=== PATIENT | female | born 1985 | race African-American/Black ===

== ENCOUNTER 2018-05-05 12:08 | Inpatient (IN) ==
[2018-05-05] MEDS ORDERED: cefTRIAXone 1,000 MG in SODIUM CHLORIDE 0.9% 100 ML IV STA (12:50)
[2018-05-05] MEDS ORDERED: SODIUM CHLORIDE 0.9% 1,000 ML IV STA (12:50)
[2018-05-05] MEDS ORDERED: ONDANSETRON 4 MG/2 ML VIAL IV STA (12:51)
[2018-05-05 13:06] LABS: Basophils % 0.3 % (0.0-0.8); Eosinophils % 0.3 % (0.00-10.9); Hematocrit 38.2 VOL% (35.7-47.0); Hemoglobin 12.7 GM/DL (12.0-16.0); Immature Granulocytes % 1.6 %; Lymphocytes # 0.2 10*3/uL (1.4-4.0); Lymphocytes % 3.5 % (21.3-54.2); Mean Corpuscular HGB Conc 33.2 GM/DL (32-36); Mean Corpuscular Hemoglobin 29 PG (27-34); Mean Corpuscular Volume 86.6 FL (87-102); Mean Platelet Volume 10.5 FL (9.6-12.0); Monocytes % 0.6 % (1.7-12.7); Neutrophils # 5.8 10*3/uL (1.4-7.4); Neutrophils % 93.7 % (38.7-73.9); Platelet Count 258 T/CUMM (130-400); Red Blood Count 4.41 MC/CUMM (3.8-5.5); White Blood Count 6.2 T/CUMM (4-12)
[2018-05-05 13:07] LABS: INR 1.1; PT Patient Result 11.4 SECS
[2018-05-05 13:16] LABS: Alanine Aminotransferase 22 U/L (13-56); Alkaline Phosphatase 79 U/L (45-117); Aspartate Amino Transferase 21 U/L (0-37); Blood Urea Nitrogen 16 MG/DL (7-18); Calcium 9.1 MG/DL (8.5-10.1); Glucose 284 MG/DL (74-106); Osmolality,Calculated 274.5 MOS/KG (273-304); Potassium 3.8 MMOL/L (3.5-5.1); Sodium 132 MMOL/L (136-145); Total Protein 8.4 G/DL (6.4-8.3)
[2018-05-05 13:17] LABS: Lactic Acid 3.7 MMOL/L (0.4-2.0)
[2018-05-05 13:47] LABS: Band Neutrophils 1 % (0-10); Lymphocytes 6 % (20-55); Platelet Estimate Normal; Segmented Neutrophils 92 % (50-85); Total Cells Counted 100
[2018-05-05 14:08] LABS: Apearance,Urine CLOUDY (Clear); Bacteria,Urine Many /HPF (Few); Bilirubin,Urine Negative (Negative); Blood, Urine Large mg/dL (Negative); Glucose,Urine (UA) 50 mg/dL (Negative); Hyaline Casts,Urine 7 /LPF (0-3); Ketones,Urine Negative (Negative); Mucus,Urine Few /LPF (Occasional); Nitrite,Urine Negative (Negative); Protein,Urine 30 MG/DL; RBC,Urine 217 /HPF (0-4); Squamous Epithelial Cell,Urine Occasional /HPF (0-10); Urine Color Amber (Yellow); Urine Specific Gravity 1.021 (1.001-1.035); Urine Urobilinogen < 2.0 EU/DL (0.2-1.0); WBC,Urine 38 /HPF (0-6)
[2018-05-05] MEDS ORDERED: DEXTROSE 50% 25 GM/50 ML VIAL IV PRN (17:28)
[2018-05-05] MEDS ORDERED: GLUCAGON 1 MG VIAL IM PRN (17:28)
[2018-05-05] MEDS ORDERED: NON-FORMULARY MEDICATION (Ondansetron Hcl [Ondansetron Hcl] 8 MG) PO PRN (17:33)
[2018-05-05] MEDS ORDERED: FLUTICASONE 50 MCG NASAL SPRAY 16 GM BOTTLE BOTH NARES PRN (17:33)
[2018-05-05] MEDS: SODIUM CHLORIDE 0.9% 1,000 ML IV SCH (17:35)
[2018-05-05] MEDS ORDERED: SODIUM CHLORIDE 0.9% 3,300 ML IV ONE (17:43)
[2018-05-05] MEDS ORDERED: SODIUM CHLORIDE 0.9% 1,000 ML IV ONE (17:45)
[2018-05-05] MEDS: ACETAMINOPHEN 325 MG TABLET PO PRN ×2 (17:50→22:01)
[2018-05-05] MEDS ORDERED: LEVOFLOXACIN INJ 500 MG in PREMIX 1 EACH IV SCH (18:00)
[2018-05-05] MEDS: MEROPENEM 1,000 MG in SYRINGE 1 EACH IV SCH (19:29)
[2018-05-05 20:16] LABS: Lactic Acid 2.3 MMOL/L (0.4-2.0)
[2018-05-05] MEDS ORDERED: FLUCONAZOLE 150 MG TABLET PO ONE (21:00)
[2018-05-05] MEDS: DOCUSATE SODIUM 100 MG CAPSULE PO SCH (21:53)
[2018-05-05] MEDS: metFORMIN 500 MG TABLET PO SCH (21:53)
[2018-05-05] MEDS: INSULIN REGULAR 100 UNIT/ML SUBCUT SCH (21:54)
[2018-05-05] MEDS: BRIMONIDINE/TIMOLOL OPH SOLN 5 ML BOTTLE LEFT EYE SCH (21:55)
[2018-05-05] MEDS: TRAVOPROST 0.004% OPH SOLN 2.5 ML BOTTLE LEFT EYE SCH (21:55)
[2018-05-05] MEDS: ONDANSETRON 4 MG/2 ML VIAL IV PRN (22:02)
[2018-05-06] MEDS: MEROPENEM 1,000 MG in SYRINGE 1 EACH IV SCH ×3 (03:56→18:03)
[2018-05-06] MEDS: ONDANSETRON 4 MG/2 ML VIAL IV PRN ×4 (03:58→22:34)
[2018-05-06] MEDS: SODIUM CHLORIDE 0.9% 1,000 ML IV SCH ×3 (03:59→22:06)
[2018-05-06] MEDS: ACETAMINOPHEN 325 MG TABLET PO PRN ×3 (04:03→16:51)
[2018-05-06 04:49] LABS: Basophils % 0.2 % (0.0-0.8); Eosinophils % 0.7 % (0.00-10.9); Hematocrit 33.1 VOL% (35.7-47.0); Hemoglobin 11.3 GM/DL (12.0-16.0); Immature Granulocytes % 0.4 %; Immature Granulocytes Absolute 0.02 #; Lymphocytes # 0.2 10*3/uL (1.4-4.0); Lymphocytes % 4.5 % (21.3-54.2); Mean Corpuscular HGB Conc 34.1 GM/DL (32-36); Mean Corpuscular Hemoglobin 29 PG (27-34); Mean Corpuscular Volume 86.2 FL (87-102); Mean Platelet Volume 10.9 FL (9.6-12.0); Monocytes % 0.9 % (1.7-12.7); Neutrophils # 4.2 10*3/uL (1.4-7.4); Neutrophils % 93.3 % (38.7-73.9); Platelet Count 186 T/CUMM (130-400); Red Blood Count 3.84 MC/CUMM (3.8-5.5); Red Cell Distribution Width 13.4 % (9.3-17.3); White Blood Count 4.5 T/CUMM (4-12)
[2018-05-06 05:05] LABS: Calcium 7.8 MG/DL (8.5-10.1); Osmolality,Calculated 278.2 MOS/KG (273-304); Potassium 3.7 MMOL/L (3.5-5.1)
[2018-05-06 05:21] LABS: Band Neutrophils 1 % (0-10); Hypochromasia 1+; Lymphocytes 3 % (20-55); Platelet Estimate Normal; Segmented Neutrophils 95 % (50-85); Total Cells Counted 100
[2018-05-06] MEDS: LISINOPRIL 10 MG TABLET PO SCH (08:35)
[2018-05-06] MEDS: INSULIN REGULAR 100 UNIT/ML SUBCUT SCH ×4 (08:36→22:04)
[2018-05-06] MEDS: BRIMONIDINE/TIMOLOL OPH SOLN 5 ML BOTTLE LEFT EYE SCH ×2 (08:36→22:03)
[2018-05-06] MEDS: metFORMIN 500 MG TABLET PO SCH ×2 (08:36→22:03)
[2018-05-06] MEDS: DOCUSATE SODIUM 100 MG CAPSULE PO SCH ×2 (08:36→22:03)
[2018-05-06] MEDS: PANTOPRAZOLE 40 MG TABLET PO SCH (08:36)
[2018-05-06] MEDS: glipiZIDE 5 MG TABLET PO SCH (08:36)
[2018-05-06] MEDS ORDERED: PANTOPRAZOLE 40 MG TABLET PO SCH (09:00)
[2018-05-06] MEDS: TRAVOPROST 0.004% OPH SOLN 2.5 ML BOTTLE LEFT EYE SCH (22:03)
[2018-05-07] MEDS: MEROPENEM 1,000 MG in SYRINGE 1 EACH IV SCH ×3 (03:10→17:46)
[2018-05-07] MEDS: SODIUM CHLORIDE 0.9% 1,000 ML IV SCH ×2 (03:16→14:52)
[2018-05-07 05:20] LABS: Basophils % 0.4 % (0.0-0.8); Eosinophils % 0.8 % (0.00-10.9); Hematocrit 31.6 VOL% (35.7-47.0); Hemoglobin 10.9 GM/DL (12.0-16.0); Immature Granulocytes % 0.4 %; Immature Granulocytes Absolute 0.01 #; Lymphocytes # 0.2 10*3/uL (1.4-4.0); Lymphocytes % 8.2 % (21.3-54.2); Mean Corpuscular HGB Conc 34.5 GM/DL (32-36); Mean Corpuscular Hemoglobin 29 PG (27-34); Mean Platelet Volume 11.5 FL (9.6-12.0); Monocytes % 0.8 % (1.7-12.7); Neutrophils # 2.3 10*3/uL (1.4-7.4); Neutrophils % 89.4 % (38.7-73.9); Platelet Count 145 T/CUMM (130-400); Red Blood Count 3.76 MC/CUMM (3.8-5.5); Red Cell Distribution Width 13.2 % (9.3-17.3); White Blood Count 2.6 T/CUMM (4-12)
[2018-05-07 05:45] LABS: Hypochromasia 1+; Platelet Estimate Normal
[2018-05-07 05:54] LABS: Calcium 7.5 MG/DL (8.5-10.1); Osmolality,Calculated 272.1 MOS/KG (273-304); Potassium 3.4 MMOL/L (3.5-5.1)
[2018-05-07] MEDS ORDERED: POTASSIUM CHLORIDE 20 MEQ TABLET PO PRN (07:40)
[2018-05-07] MEDS: ONDANSETRON 4 MG/2 ML VIAL IV PRN (07:53)
[2018-05-07] MEDS: INSULIN REGULAR 100 UNIT/ML SUBCUT SCH ×4 (10:07→21:00)
[2018-05-07] MEDS: PANTOPRAZOLE 40 MG TABLET PO SCH (10:09)
[2018-05-07] MEDS: glipiZIDE 5 MG TABLET PO SCH (10:09)
[2018-05-07] MEDS: DOCUSATE SODIUM 100 MG CAPSULE PO SCH ×2 (10:09→20:54)
[2018-05-07] MEDS: metFORMIN 500 MG TABLET PO SCH ×2 (10:09→20:54)
[2018-05-07] MEDS: LISINOPRIL 10 MG TABLET PO SCH (10:09)
[2018-05-07] MEDS: BRIMONIDINE/TIMOLOL OPH SOLN 5 ML BOTTLE LEFT EYE SCH ×2 (10:10→20:54)
[2018-05-07] MEDS: FILGRASTIM-SNDZ 480 MCG/0.8 ML SYRINGE SUBCUT SCH (10:15)
[2018-05-07] MEDS: CLINDAMYCIN INJ 600 MG in PREMIX 1 EACH IV SCH ×2 (11:57→18:42)
[2018-05-07] MEDS: PROMETHAZINE INJ 25 MG in SODIUM CHLORIDE 0.9% 50 ML IV PRN (15:22)
[2018-05-07] MEDS: TRAVOPROST 0.004% OPH SOLN 2.5 ML BOTTLE LEFT EYE SCH (20:54)
[2018-05-07] MEDS: ALUMINUM/MAGNES/SIMETH MAX STR 30 ML UDCUP PO PRN (21:48)
[2018-05-07] MEDS ORDERED: ALUMINUM/MAGNES/SIMETH MAX STR 30 ML UDCUP PO SCH (22:00)
[2018-05-08] MEDS: MEROPENEM 1,000 MG in SYRINGE 1 EACH IV SCH ×3 (02:36→17:43)
[2018-05-08] MEDS: CLINDAMYCIN INJ 600 MG in PREMIX 1 EACH IV SCH ×2 (02:42→11:11)
[2018-05-08 03:04] LABS: Basophils # 0.1 10*3/uL (0.0-0.2); Basophils % 1.6 % (0.0-0.8); Eosinophils % 0.3 % (0.00-10.9); Hematocrit 30.5 VOL% (35.7-47.0); Hemoglobin 10.2 GM/DL (12.0-16.0); Immature Granulocytes % 1.3 %; Immature Granulocytes Absolute 0.04 #; Lymphocytes # 0.2 10*3/uL (1.4-4.0); Lymphocytes % 7.8 % (21.3-54.2); Mean Corpuscular HGB Conc 33.4 GM/DL (32-36); Mean Corpuscular Hemoglobin 29 PG (27-34); Mean Corpuscular Volume 85.7 FL (87-102); Mean Platelet Volume 10.9 FL (9.6-12.0); Monocytes % 1.3 % (1.7-12.7); Neutrophils # 2.7 10*3/uL (1.4-7.4); Neutrophils % 87.7 % (38.7-73.9); Platelet Count 136 T/CUMM (130-400); Red Blood Count 3.56 MC/CUMM (3.8-5.5); Red Cell Distribution Width 13.2 % (9.3-17.3); White Blood Count 3.1 T/CUMM (4-12)
[2018-05-08 04:48] LABS: Band Neutrophils 26 % (0-10); Lymphocytes 7 % (20-55); Metamyelocytes 17 %; Myelocytes 9 %; Platelet Estimate Decreased; Segmented Neutrophils 37 % (50-85); Total Cells Counted 100
[2018-05-08 04:49] LABS: Anisocytosis Slight; Burr Cells Few; Microcytosis Slight
[2018-05-08 08:05] LABS: Calcium 7.1 MG/DL (8.5-10.1); Osmolality,Calculated 275.1 MOS/KG (273-304); Potassium 3.7 MMOL/L (3.5-5.1)
[2018-05-08] MEDS: SODIUM CHLORIDE 0.9% 1,000 ML IV SCH (09:46)
[2018-05-08] MEDS: PROMETHAZINE INJ 25 MG in SODIUM CHLORIDE 0.9% 50 ML IV PRN (09:51)
[2018-05-08] MEDS: LISINOPRIL 10 MG TABLET PO SCH (09:56)
[2018-05-08] MEDS: DOCUSATE SODIUM 100 MG CAPSULE PO SCH ×2 (09:56→20:15)
[2018-05-08] MEDS: metFORMIN 500 MG TABLET PO SCH (09:56)
[2018-05-08] MEDS: PANTOPRAZOLE 40 MG TABLET PO SCH (09:56)
[2018-05-08] MEDS: glipiZIDE 5 MG TABLET PO SCH (09:57)
[2018-05-08] MEDS: FILGRASTIM-SNDZ 480 MCG/0.8 ML SYRINGE SUBCUT SCH (09:58)
[2018-05-08] MEDS: INSULIN REGULAR 100 UNIT/ML SUBCUT SCH ×4 (09:59→20:43)
[2018-05-08] MEDS: BRIMONIDINE/TIMOLOL OPH SOLN 5 ML BOTTLE LEFT EYE SCH ×2 (10:04→20:15)
[2018-05-08] MEDS ORDERED: chlorproMAZINE INJ 25 MG in SODIUM CHLORIDE 0.9% 100 ML IV PRN (11:56)
[2018-05-08] MEDS: DEXT 5% NACL 0.45% KCL 20 MEQ 20 MEQ/1,000 ML BAG IV SCH ×2 (13:41→21:15)
[2018-05-08] MEDS: TRAVOPROST 0.004% OPH SOLN 2.5 ML BOTTLE LEFT EYE SCH (20:15)
[2018-05-08] MEDS: DESITIN 4OZ/NYSTATIN 15 GRAM MIXTURE PASTE TOP SCH (20:15)
[2018-05-09] MEDS: MEROPENEM 1,000 MG in SYRINGE 1 EACH IV SCH ×3 (02:20→17:34)
[2018-05-09 02:42] LABS: Basophils % 1.1 % (0.0-0.8); Eosinophils % 0.4 % (0.00-10.9); Hematocrit 30.8 VOL% (35.7-47.0); Hemoglobin 10.5 GM/DL (12.0-16.0); Immature Granulocytes % 11.2 %; Immature Granulocytes Absolute 0.32 #; Lymphocytes # 0.4 10*3/uL (1.4-4.0); Lymphocytes % 12.6 % (21.3-54.2); Mean Corpuscular HGB Conc 34.1 GM/DL (32-36); Mean Corpuscular Hemoglobin 29 PG (27-34); Mean Corpuscular Volume 84.4 FL (87-102); Mean Platelet Volume 10.8 FL (9.6-12.0); Monocytes # 0.1 10*3/uL (0.11-0.8); Monocytes % 2.8 % (1.7-12.7); Neutrophils # 2.1 10*3/uL (1.4-7.4); Neutrophils % 71.9 % (38.7-73.9); Platelet Count 133 T/CUMM (130-400); Red Blood Count 3.65 MC/CUMM (3.8-5.5); Red Cell Distribution Width 13.5 % (9.3-17.3); White Blood Count 2.9 T/CUMM (4-12)
[2018-05-09 02:54] LABS: Albumin 2.5 G/DL (3.4-5.0); Calcium 7.4 MG/DL (8.5-10.1); Osmolality,Calculated 269.5 MOS/KG (273-304); Potassium 3.7 MMOL/L (3.5-5.1); Total Protein 6.9 G/DL (6.4-8.3)
[2018-05-09 03:13] LABS: Band Neutrophils 30 % (0-10); Eosinophils 2 % (0-10); Lymphocytes 10 % (20-55); Segmented Neutrophils 58 % (50-85); Total Cells Counted 100
[2018-05-09] MEDS: ACETAMINOPHEN 325 MG TABLET PO PRN ×4 (03:46→21:43)
[2018-05-09] MEDS: DEXT 5% NACL 0.45% KCL 20 MEQ 20 MEQ/1,000 ML BAG IV SCH ×3 (04:50→20:23)
[2018-05-09] MEDS: glipiZIDE 5 MG TABLET PO SCH (09:44)
[2018-05-09] MEDS: DOCUSATE SODIUM 100 MG CAPSULE PO SCH ×2 (09:44→20:15)
[2018-05-09] MEDS: PANTOPRAZOLE 40 MG TABLET PO SCH (09:44)
[2018-05-09] MEDS: LISINOPRIL 10 MG TABLET PO SCH (09:44)
[2018-05-09] MEDS: BRIMONIDINE/TIMOLOL OPH SOLN 5 ML BOTTLE LEFT EYE SCH ×2 (09:46→20:15)
[2018-05-09] MEDS: INSULIN REGULAR 100 UNIT/ML SUBCUT SCH ×4 (09:46→20:15)
[2018-05-09] MEDS: DESITIN 4OZ/NYSTATIN 15 GRAM MIXTURE PASTE TOP SCH ×2 (09:50→20:23)
[2018-05-09] MEDS: FILGRASTIM-SNDZ 480 MCG/0.8 ML SYRINGE SUBCUT SCH (09:53)
[2018-05-09] MEDS: ALUMINUM/MAGNES/SIMETH MAX STR 30 ML UDCUP PO PRN (09:59)
[2018-05-09] MEDS: TRAVOPROST 0.004% OPH SOLN 2.5 ML BOTTLE LEFT EYE SCH (20:15)
[2018-05-10] MEDS: ONDANSETRON 4 MG/2 ML VIAL IV PRN ×3 (01:41→14:45)
[2018-05-10] MEDS: MEROPENEM 1,000 MG in SYRINGE 1 EACH IV SCH ×2 (01:42→10:34)
[2018-05-10] MEDS: DEXT 5% NACL 0.45% KCL 20 MEQ 20 MEQ/1,000 ML BAG IV SCH ×3 (04:01→17:44)
[2018-05-10] MEDS: ACETAMINOPHEN 325 MG TABLET PO PRN ×3 (04:34→21:07)
[2018-05-10 05:42] LABS: Hemoglobin 10.5 GM/DL (12.0-16.0); Immature Granulocytes % 7.5 %; Immature Granulocytes Absolute 0.29 #; Lymphocytes # 0.7 10*3/uL (1.4-4.0); Lymphocytes % 17.6 % (21.3-54.2); Mean Corpuscular Hemoglobin 29 PG (27-34); Mean Corpuscular Volume 81.3 FL (87-102); Mean Platelet Volume 11.9 FL (9.6-12.0); Monocytes # 0.3 10*3/uL (0.11-0.8); Neutrophils # 2.6 10*3/uL (1.4-7.4); Neutrophils % 65.9 % (38.7-73.9); Platelet Count 119 T/CUMM (130-400); Red Blood Count 3.69 MC/CUMM (3.8-5.5); Red Cell Distribution Width 13.7 % (9.3-17.3); White Blood Count 3.9 T/CUMM (4-12)
[2018-05-10 06:35] LABS: Albumin 2.4 G/DL (3.4-5.0); Bilirubin,Total 7.1 MG/DL (0.2-1.0); Calcium 7.9 MG/DL (8.5-10.1); Osmolality,Calculated 266.7 MOS/KG (273-304); Potassium 3.9 MMOL/L (3.5-5.1); Total Protein 6.8 G/DL (6.4-8.3)
[2018-05-10 07:53] LABS: Band Neutrophils 2 % (0-10); Eosinophils 2 % (0-10); Hypochromasia 1+; Lymphocytes 14 % (20-55); Microcytosis Slight; Platelet Estimate Decreased; Segmented Neutrophils 73 % (50-85); Total Cells Counted 100
[2018-05-10] MEDS: LISINOPRIL 10 MG TABLET PO SCH (08:50)
[2018-05-10] MEDS: BRIMONIDINE/TIMOLOL OPH SOLN 5 ML BOTTLE LEFT EYE SCH ×2 (08:50→20:04)
[2018-05-10] MEDS: glipiZIDE 5 MG TABLET PO SCH (08:50)
[2018-05-10] MEDS: DOCUSATE SODIUM 100 MG CAPSULE PO SCH ×2 (08:50→20:03)
[2018-05-10] MEDS: INSULIN REGULAR 100 UNIT/ML SUBCUT SCH ×4 (08:50→20:05)
[2018-05-10] MEDS: PANTOPRAZOLE 40 MG TABLET PO SCH (08:51)
[2018-05-10] MEDS: FILGRASTIM-SNDZ 480 MCG/0.8 ML SYRINGE SUBCUT SCH (08:51)
[2018-05-10] MEDS: DESITIN 4OZ/NYSTATIN 15 GRAM MIXTURE PASTE TOP SCH ×2 (08:53→20:05)
[2018-05-10] MEDS: DOXYCYCLINE HYCLATE 100 MG CAPSULE PO SCH (20:03)
[2018-05-10] MEDS: TRAVOPROST 0.004% OPH SOLN 2.5 ML BOTTLE LEFT EYE SCH (20:04)
[2018-05-11] MEDS: ONDANSETRON 4 MG/2 ML VIAL IV PRN (02:52)
[2018-05-11] MEDS: PROMETHAZINE INJ 25 MG in SODIUM CHLORIDE 0.9% 50 ML IV PRN (04:55)
[2018-05-11 05:12] LABS: Basophils % 0.5 % (0.0-0.8); Eosinophils % 0.5 % (0.00-10.9); Hematocrit 28.7 VOL% (35.7-47.0); Hemoglobin 10.1 GM/DL (12.0-16.0); Immature Granulocytes % 6.4 %; Immature Granulocytes Absolute 0.53 #; Lymphocytes # 1.6 10*3/uL (1.4-4.0); Lymphocytes % 19.2 % (21.3-54.2); Mean Corpuscular HGB Conc 35.2 GM/DL (32-36); Mean Corpuscular Hemoglobin 29 PG (27-34); Mean Corpuscular Volume 82.5 FL (87-102); Mean Platelet Volume 11.7 FL (9.6-12.0); Monocytes # 0.5 10*3/uL (0.11-0.8); Monocytes % 6.5 % (1.7-12.7); Neutrophils # 5.6 10*3/uL (1.4-7.4); Neutrophils % 66.9 % (38.7-73.9); Platelet Count 101 T/CUMM (130-400); Red Blood Count 3.48 MC/CUMM (3.8-5.5); Red Cell Distribution Width 14.2 % (9.3-17.3); White Blood Count 8.3 T/CUMM (4-12)
[2018-05-11 05:34] LABS: Band Neutrophils 2 % (0-10); Eosinophils 1 % (0-10); Hypochromasia 1+; Lymphocytes 19 % (20-55); Platelet Estimate Decreased; Segmented Neutrophils 68 % (50-85); Total Cells Counted 100
[2018-05-11 05:35] LABS: Microcytosis Slight
[2018-05-11 05:49] LABS: Albumin 2.2 G/DL (3.4-5.0); Bilirubin,Total 8.7 MG/DL (0.2-1.0); Calcium 8.1 MG/DL (8.5-10.1); Osmolality,Calculated 264.8 MOS/KG (273-304); Potassium 3.9 MMOL/L (3.5-5.1); Total Protein 6.6 G/DL (6.4-8.3)
[2018-05-11] MEDS: BRIMONIDINE/TIMOLOL OPH SOLN 5 ML BOTTLE LEFT EYE SCH ×2 (08:47→20:40)
[2018-05-11] MEDS: LISINOPRIL 10 MG TABLET PO SCH (08:48)
[2018-05-11] MEDS: DOCUSATE SODIUM 100 MG CAPSULE PO SCH ×2 (08:48→20:39)
[2018-05-11] MEDS: PANTOPRAZOLE 40 MG TABLET PO SCH (08:48)
[2018-05-11] MEDS: DOXYCYCLINE HYCLATE 100 MG CAPSULE PO SCH ×2 (08:48→20:34)
[2018-05-11] MEDS: INSULIN REGULAR 100 UNIT/ML SUBCUT SCH ×4 (08:48→20:50)
[2018-05-11] MEDS: DESITIN 4OZ/NYSTATIN 15 GRAM MIXTURE PASTE TOP SCH ×2 (08:51→20:55)
[2018-05-11] MEDS: ALUMINUM/MAGNES/SIMETH MAX STR 30 ML UDCUP PO PRN (09:43)
[2018-05-11 10:27] LABS: Hepatitis A Ab IgM Quant 0.14 Index; Hepatitis A Ab IgM Result Negative (Negative); Hepatitis B Core IgM Quant 0.16 Index; Hepatitis B Core IgM Result Negative (Negative); Hepatitis B Surface Ag Quant 0.39 Index; Hepatitis B Surface Ag Result Negative (Negative); Hepatitis C Virus Ab Quant 0.13 Index; Hepatitis C Virus Ab Result Negative (Negative)
[2018-05-11] MEDS ORDERED: TRIAMCINOLONE ACETONIDE 40 MG/1 ML VIAL MISC INJ ONE (12:21)
[2018-05-11 15:01] LABS: INR 1.1
[2018-05-11 15:16] LABS: % Iron Saturation 17.7 % (18-50); Ferritin 2960.4 ng/ml (8-252)
[2018-05-11] MEDS: IBUPROFEN 400 MG TABLET PO PRN (16:05)
[2018-05-11] MEDS: ACETAMINOPHEN 325 MG TABLET PO PRN (17:45)
[2018-05-11] MEDS: DEXT 5% NACL 0.45% KCL 20 MEQ 20 MEQ/1,000 ML BAG IV SCH (18:52)
[2018-05-11] MEDS: TRAVOPROST 0.004% OPH SOLN 2.5 ML BOTTLE LEFT EYE SCH (20:40)
[2018-05-12 04:54] LABS: Basophils # 0.1 10*3/uL (0.0-0.2); Basophils % 0.5 % (0.0-0.8); Eosinophils % 0.2 % (0.00-10.9); Hematocrit 28.7 VOL% (35.7-47.0); Immature Granulocytes % 14.1 %; Immature Granulocytes Absolute 1.49 #; Mean Corpuscular HGB Conc 34.8 GM/DL (32-36); Mean Corpuscular Hemoglobin 28 PG (27-34); Mean Corpuscular Volume 81.5 FL (87-102); Mean Platelet Volume 12.2 FL (9.6-12.0); Monocytes # 0.6 10*3/uL (0.11-0.8); Monocytes % 5.3 % (1.7-12.7); NRBC # 0.03 10*3/uL; Neutrophils # 6.5 10*3/uL (1.4-7.4); Neutrophils % 60.9 % (38.7-73.9); Platelet Count 115 T/CUMM (130-400); Red Blood Count 3.52 MC/CUMM (3.8-5.5); Red Cell Distribution Width 14.3 % (9.3-17.3); White Blood Count 10.6 T/CUMM (4-12)
[2018-05-12 04:58] LABS: INR 1.1; PT Patient Result 11.8 SECS
[2018-05-12 05:24] LABS: Albumin 2.3 G/DL (3.4-5.0); Bilirubin,Total 10.8 MG/DL (0.2-1.0); Calcium 7.8 MG/DL (8.5-10.1); Osmolality,Calculated 268.8 MOS/KG (273-304); Potassium 3.9 MMOL/L (3.5-5.1); Total Protein 6.7 G/DL (6.4-8.3)
[2018-05-12 05:26] LABS: Band Neutrophils 9 % (0-10); Lymphocytes 13 % (20-55); Metamyelocytes 1 %; Nucleated Red Blood Cells 1 (0-5); Platelet Estimate Adequate; Segmented Neutrophils 71 % (50-85); Total Cells Counted 100
[2018-05-12 05:27] LABS: Atypical Lymphocytes Few; Polychromasia Slight; Target Cells Few
[2018-05-12] MEDS: ALPRAZolam 0.25 MG TABLET PO PRN (08:37)
[2018-05-12] MEDS ORDERED: GLUCAGON 1 MG VIAL IM PRN (09:07)
[2018-05-12] MEDS ORDERED: DEXTROSE 50% 25 GM/50 ML VIAL IV PRN (09:07)
[2018-05-12] MEDS: INSULIN REGULAR 100 UNIT/ML SUBCUT SCH ×4 (11:04→20:32)
[2018-05-12] MEDS: LISINOPRIL 10 MG TABLET PO SCH (11:19)
[2018-05-12] MEDS: DOCUSATE SODIUM 100 MG CAPSULE PO SCH ×2 (11:19→20:33)
[2018-05-12] MEDS: PANTOPRAZOLE 40 MG TABLET PO SCH (11:19)
[2018-05-12] MEDS: BRIMONIDINE/TIMOLOL OPH SOLN 5 ML BOTTLE LEFT EYE SCH ×2 (11:20→20:32)
[2018-05-12] MEDS: DESITIN 4OZ/NYSTATIN 15 GRAM MIXTURE PASTE TOP SCH ×2 (11:22→20:34)
[2018-05-12] MEDS: MUPIROCIN 2% OINT 22 GM TUBE TOP SCH ×3 (12:23→20:33)
[2018-05-12] MEDS: DEXT 5% NACL 0.45% KCL 20 MEQ 20 MEQ/1,000 ML BAG IV SCH (13:40)
[2018-05-12 13:55] LABS: Mitochondrial Antibody (M2) <0.1 U
[2018-05-12 15:01] LABS: Smooth Muscle Antibody Negative (Negative)
[2018-05-12] MEDS: IBUPROFEN 400 MG TABLET PO PRN (15:56)
[2018-05-12] MEDS: TRAVOPROST 0.004% OPH SOLN 2.5 ML BOTTLE LEFT EYE SCH (20:32)
[2018-05-12] MEDS: TEMAZEPAM 15 MG CAPSULE PO PRN (20:38)
[2018-05-13 05:53] LABS: Basophils % 0.2 % (0.0-0.8); Eosinophils % 0.2 % (0.00-10.9); Hematocrit 27.3 VOL% (35.7-47.0); Hemoglobin 9.6 GM/DL (12.0-16.0); Immature Granulocytes Absolute 1.16 #; Lymphocytes # 2.2 10*3/uL (1.4-4.0); Lymphocytes % 21.1 % (21.3-54.2); Mean Corpuscular HGB Conc 35.2 GM/DL (32-36); Mean Corpuscular Hemoglobin 29 PG (27-34); Mean Platelet Volume 12.2 FL (9.6-12.0); Monocytes # 0.6 10*3/uL (0.11-0.8); Monocytes % 5.5 % (1.7-12.7); NRBC # 0.03 10*3/uL; Neutrophils # 6.5 10*3/uL (1.4-7.4); Platelet Count 102 T/CUMM (130-400); Red Blood Count 3.33 MC/CUMM (3.8-5.5); Red Cell Distribution Width 14.6 % (9.3-17.3); White Blood Count 10.6 T/CUMM (4-12)
[2018-05-13] MEDS: ONDANSETRON 4 MG/2 ML VIAL IV PRN ×2 (06:05→17:15)
[2018-05-13] MEDS: IBUPROFEN 400 MG TABLET PO PRN (06:05)
[2018-05-13 06:19] LABS: Band Neutrophils 3 % (0-10); Eosinophils 1 % (0-10); Hypochromasia 1+; Lymphocytes 15 % (20-55); Ovalocytes Slight; Platelet Estimate Decreased; Segmented Neutrophils 73 % (50-85); Total Cells Counted 100
[2018-05-13 06:20] LABS: Microcytosis Slight
[2018-05-13 06:38] LABS: Calcium 8.1 MG/DL (8.5-10.1); Osmolality,Calculated 265.8 MOS/KG (273-304); Potassium 3.8 MMOL/L (3.5-5.1); Total Protein 6.6 G/DL (6.4-8.3)
[2018-05-13 06:42] LABS: Bilirubin,Total 12.9 MG/DL (0.2-1.0)
[2018-05-13 09:02] LABS: Albumin (SPE) 2.9 G/DL (3.2-5.3); Albumin (SPE) Rel % 42.8 %; Alpha 1 (SPE) 0.3 G/DL (0.1-0.4); Alpha 1 (SPE) Rel % 4.9 %; Alpha 2 (SPE) 0.7 G/DL (0.4-1.0); Alpha 2 (SPE) Rel % 10.3 %; Beta (SPE) 0.9 G/DL (0.5-1.1); Beta (SPE) Rel % 14.2 %; Gamma (SPE) 1.9 G/DL (0.7-1.7); Gamma (SPE) Rel % 27.8 %; Total Protein (Chem) 6.7 G/DL (6.4-8.3)
[2018-05-13 09:33] LABS: Hemoglobin A1 (Alkaline) 97.1 % (96.5-98.5); Hemoglobin A2 (Alkaline) 2.9 % (1.5-3.5)
[2018-05-13] MEDS: BRIMONIDINE/TIMOLOL OPH SOLN 5 ML BOTTLE LEFT EYE SCH ×2 (09:55→21:39)
[2018-05-13] MEDS: MUPIROCIN 2% OINT 22 GM TUBE TOP SCH ×3 (09:59→21:39)
[2018-05-13] MEDS: DESITIN 4OZ/NYSTATIN 15 GRAM MIXTURE PASTE TOP SCH ×2 (10:00→21:41)
[2018-05-13] MEDS: INSULIN REGULAR 100 UNIT/ML SUBCUT SCH ×4 (10:37→21:40)
[2018-05-13] MEDS: ALPRAZolam 0.25 MG TABLET PO PRN (10:59)
[2018-05-13] MEDS ORDERED: DIAZEPAM 5 MG TABLET PO ONE (11:09)
[2018-05-13] MEDS: DOCUSATE SODIUM 100 MG CAPSULE PO SCH ×3 (14:06→21:43)
[2018-05-13] MEDS: PANTOPRAZOLE 40 MG TABLET PO SCH (14:06)
[2018-05-13] MEDS: LISINOPRIL 10 MG TABLET PO SCH (14:06)
[2018-05-13] MEDS: DEXT 5% NACL 0.45% KCL 20 MEQ 20 MEQ/1,000 ML BAG IV SCH (15:18)
[2018-05-13] MEDS: TEMAZEPAM 15 MG CAPSULE PO PRN (21:39)
[2018-05-13] MEDS: TRAVOPROST 0.004% OPH SOLN 2.5 ML BOTTLE LEFT EYE SCH (21:39)
[2018-05-14 07:32] LABS: Calcium 7.6 MG/DL (8.5-10.1); Osmolality,Calculated 266.4 MOS/KG (273-304); Total Protein 6.5 G/DL (6.4-8.3)
[2018-05-14 07:34] LABS: Bilirubin,Total 13.1 MG/DL (0.2-1.0)
[2018-05-14] MEDS: DEXT 5% NACL 0.45% KCL 20 MEQ 20 MEQ/1,000 ML BAG IV SCH (08:32)
[2018-05-14] MEDS: BRIMONIDINE/TIMOLOL OPH SOLN 5 ML BOTTLE LEFT EYE SCH ×2 (09:08→20:31)
[2018-05-14] MEDS: LISINOPRIL 10 MG TABLET PO SCH (09:08)
[2018-05-14] MEDS: PANTOPRAZOLE 40 MG TABLET PO SCH (09:08)
[2018-05-14] MEDS: DOCUSATE SODIUM 100 MG CAPSULE PO SCH ×3 (09:08→20:38)
[2018-05-14] MEDS: DESITIN 4OZ/NYSTATIN 15 GRAM MIXTURE PASTE TOP SCH ×2 (09:09→20:33)
[2018-05-14] MEDS: MUPIROCIN 2% OINT 22 GM TUBE TOP SCH ×3 (09:10→20:32)
[2018-05-14] MEDS: INSULIN REGULAR 100 UNIT/ML SUBCUT SCH ×4 (09:45→20:30)
[2018-05-14 10:34] LABS: Basophils % 0.1 % (0.0-0.8); Eosinophils % 0.1 % (0.00-10.9); Hematocrit 25.3 VOL% (35.7-47.0); Hemoglobin 8.7 GM/DL (12.0-16.0); Immature Granulocytes % 9.8 %; Lymphocytes % 21.5 % (21.3-54.2); Mean Corpuscular HGB Conc 34.4 GM/DL (32-36); Mean Corpuscular Hemoglobin 29 PG (27-34); Mean Corpuscular Volume 83.2 FL (87-102); Mean Platelet Volume 12.3 FL (9.6-12.0); Monocytes # 0.7 10*3/uL (0.11-0.8); Monocytes % 7.1 % (1.7-12.7); Neutrophils # 5.6 10*3/uL (1.4-7.4); Neutrophils % 61.4 % (38.7-73.9); Red Blood Count 3.04 MC/CUMM (3.8-5.5); White Blood Count 9.2 T/CUMM (4-12)
[2018-05-14 10:41] LABS: Platelet Count 84 T/CUMM (130-400)
[2018-05-14 11:07] LABS: Atypical Lymphocytes Few; Band Neutrophils 2 % (0-10); Hypochromasia 1+; Lymphocytes 26 % (20-55); Microcytosis 1+; Segmented Neutrophils 66 % (50-85); Total Cells Counted 100
[2018-05-14 11:08] LABS: Platelet Estimate Decreased
[2018-05-14] MEDS: methylPREDNISolone SOD SUC 40 MG/1 ML VIAL IV SCH ×2 (13:04→20:28)
[2018-05-14] MEDS: SODIUM CHLORIDE 0.9% 1,000 ML IV SCH (17:31)
[2018-05-14] MEDS: TRAVOPROST 0.004% OPH SOLN 2.5 ML BOTTLE LEFT EYE SCH (20:31)
[2018-05-14] MEDS: TEMAZEPAM 15 MG CAPSULE PO PRN (20:35)
[2018-05-15 04:16] LABS: Basophils % 0.1 % (0.0-0.8); Hematocrit 26.2 VOL% (35.7-47.0); Hemoglobin 9.3 GM/DL (12.0-16.0); Immature Granulocytes % 9.3 %; Immature Granulocytes Absolute 0.94 #; Lymphocytes # 2.4 10*3/uL (1.4-4.0); Lymphocytes % 23.5 % (21.3-54.2); Mean Corpuscular HGB Conc 35.5 GM/DL (32-36); Mean Corpuscular Hemoglobin 29 PG (27-34); Mean Corpuscular Volume 80.6 FL (87-102); Mean Platelet Volume 12.5 FL (9.6-12.0); Monocytes # 0.6 10*3/uL (0.11-0.8); Neutrophils # 6.2 10*3/uL (1.4-7.4); Neutrophils % 61.1 % (38.7-73.9); Platelet Count 90 T/CUMM (130-400); Red Blood Count 3.25 MC/CUMM (3.8-5.5); Red Cell Distribution Width 14.6 % (9.3-17.3); White Blood Count 10.2 T/CUMM (4-12)
[2018-05-15 04:31] LABS: Albumin 1.9 G/DL (3.4-5.0); Calcium 8.3 MG/DL (8.5-10.1); Osmolality,Calculated 279.5 MOS/KG (273-304); Potassium 5.1 MMOL/L (3.5-5.1); Total Protein 7.3 G/DL (6.4-8.3)
[2018-05-15] MEDS: methylPREDNISolone SOD SUC 40 MG/1 ML VIAL IV SCH ×3 (04:51→20:23)
[2018-05-15 04:53] LABS: Bilirubin,Total 13.1 MG/DL (0.2-1.0)
[2018-05-15] MEDS: SODIUM CHLORIDE 0.9% 1,000 ML IV SCH ×3 (04:54→18:47)
[2018-05-15 05:06] LABS: Band Neutrophils 5 % (0-10); Hypochromasia 1+; Lymphocytes 17 % (20-55); Platelet Estimate Decreased; Segmented Neutrophils 70 % (50-85); Total Cells Counted 100
[2018-05-15 05:07] LABS: Atypical Lymphocytes Few; Microcytosis 1+
[2018-05-15] MEDS: PANTOPRAZOLE 40 MG TABLET PO SCH (08:50)
[2018-05-15] MEDS: INSULIN REGULAR 100 UNIT/ML SUBCUT SCH ×4 (08:50→20:22)
[2018-05-15] MEDS: LISINOPRIL 10 MG TABLET PO SCH (08:50)
[2018-05-15] MEDS: DOCUSATE SODIUM 100 MG CAPSULE PO SCH ×2 (08:51→20:36)
[2018-05-15] MEDS: MUPIROCIN 2% OINT 22 GM TUBE TOP SCH ×3 (08:51→20:23)
[2018-05-15] MEDS: DESITIN 4OZ/NYSTATIN 15 GRAM MIXTURE PASTE TOP SCH ×2 (08:51→20:23)
[2018-05-15] MEDS: BRIMONIDINE/TIMOLOL OPH SOLN 5 ML BOTTLE LEFT EYE SCH ×2 (08:51→20:22)
[2018-05-15 14:45] LABS: Apearance,Urine CLEAR (Clear); Bacteria,Urine Occasional /HPF (Few); Bilirubin,Urine Negative (Negative); Blood, Urine Moderate mg/dL (Negative); Glucose,Urine (UA) >=500 mg/dL (Negative); Ketones,Urine Negative (Negative); Mucus,Urine Occasional /LPF (Occasional); Nitrite,Urine Negative (Negative); Protein,Urine Negative; RBC,Urine 13 /HPF (0-4); Renal Epithelial Cells,Urine Occasional /HPF (<1); Squamous Epithelial Cell,Urine Occasional /HPF (0-10); Urine Color Amber (Yellow); Urine Specific Gravity 1.007 (1.001-1.035); Urine Urobilinogen < 2.0 EU/DL (0.2-1.0); WBC,Urine 8 /HPF (0-6)
[2018-05-15] MEDS: miSOPROStol 200 MCG TABLET PO SCH ×2 (16:36→20:21)
[2018-05-15] MEDS: TRAVOPROST 0.004% OPH SOLN 2.5 ML BOTTLE LEFT EYE SCH (20:23)
[2018-05-15] MEDS: TEMAZEPAM 15 MG CAPSULE PO PRN (20:33)
[2018-05-15] MEDS ORDERED: INSULIN GLARGINE 100 UNIT/ML SUBCUT SCH (21:00)
[2018-05-16] MEDS ORDERED: LOPERAMIDE 2 MG CAPSULE PO ONE (02:14)
[2018-05-16] MEDS: methylPREDNISolone SOD SUC 40 MG/1 ML VIAL IV SCH ×3 (04:19→21:15)
[2018-05-16] MEDS: SODIUM CHLORIDE 0.9% 1,000 ML IV SCH ×2 (04:23→16:47)
[2018-05-16 04:59] LABS: Basophils % 0.2 % (0.0-0.8); Hematocrit 25.9 VOL% (35.7-47.0); Hemoglobin 9.4 GM/DL (12.0-16.0); Immature Granulocytes % 9.6 %; Lymphocytes # 1.6 10*3/uL (1.4-4.0); Lymphocytes % 16.9 % (21.3-54.2); Mean Corpuscular HGB Conc 36.3 GM/DL (32-36); Mean Corpuscular Hemoglobin 29 PG (27-34); Mean Platelet Volume 12.2 FL (9.6-12.0); Monocytes # 0.6 10*3/uL (0.11-0.8); Monocytes % 6.7 % (1.7-12.7); NRBC # 0.02 10*3/uL; Neutrophils # 6.3 10*3/uL (1.4-7.4); Neutrophils % 66.6 % (38.7-73.9); Platelet Count 122 T/CUMM (130-400); Red Blood Count 3.28 MC/CUMM (3.8-5.5); White Blood Count 9.4 T/CUMM (4-12)
[2018-05-16 05:27] LABS: Albumin 1.9 G/DL (3.4-5.0); Bilirubin,Total 7.3 MG/DL (0.2-1.0); Calcium 7.7 MG/DL (8.5-10.1); Total Protein 7.2 G/DL (6.4-8.3)
[2018-05-16 05:28] LABS: Atypical Lymphocytes Few; Band Neutrophils 4 % (0-10); Hypochromasia 1+; Lymphocytes 11 % (20-55); Microcytosis 1+; Myelocytes 1 %; Osmolality,Calculated 285.9 MOS/KG (273-304); Platelet Estimate Decreased; Segmented Neutrophils 78 % (50-85); Total Cells Counted 100
[2018-05-16] MEDS: LOPERAMIDE 2 MG CAPSULE PO PRN ×2 (06:19→18:46)
[2018-05-16] MEDS: BRIMONIDINE/TIMOLOL OPH SOLN 5 ML BOTTLE LEFT EYE SCH ×2 (08:55→21:13)
[2018-05-16] MEDS: miSOPROStol 200 MCG TABLET PO SCH ×4 (08:55→21:12)
[2018-05-16] MEDS: PANTOPRAZOLE 40 MG TABLET PO SCH (08:55)
[2018-05-16] MEDS: INSULIN REGULAR 100 UNIT/ML SUBCUT SCH ×4 (08:56→21:14)
[2018-05-16] MEDS: DESITIN 4OZ/NYSTATIN 15 GRAM MIXTURE PASTE TOP SCH ×2 (08:56→21:20)
[2018-05-16] MEDS: MUPIROCIN 2% OINT 22 GM TUBE TOP SCH ×3 (08:57→21:14)
[2018-05-16] MEDS: SODIUM BICARB INJ 100 MEQ in STERILE WATER INJ 1,000 ML IV SCH (08:57)
[2018-05-16] MEDS: DOCUSATE SODIUM 100 MG CAPSULE PO SCH ×2 (08:58→21:21)
[2018-05-16] MEDS ORDERED: INSULIN GLARGINE 100 UNIT/ML SUBCUT SCH (10:25)
[2018-05-16] MEDS: ALBUMIN 25% 25 GM in PREMIX 1 EACH IV SCH ×2 (10:42→16:45)
[2018-05-16] MEDS: PIPERACILLIN/TAZOBACTAM 3,375 MG in SODIUM CHLORIDE 0.9% 100 ML IV SCH ×2 (12:10→22:15)
[2018-05-16] MEDS: glipiZIDE 5 MG TABLET PO SCH (16:46)
[2018-05-16] MEDS: TRAVOPROST 0.004% OPH SOLN 2.5 ML BOTTLE LEFT EYE SCH (21:13)
[2018-05-17] MEDS: SODIUM CHLORIDE 0.9% 1,000 ML IV SCH ×2 (02:05→14:32)
[2018-05-17] MEDS: ALBUMIN 25% 25 GM in PREMIX 1 EACH IV SCH ×3 (03:02→18:07)
[2018-05-17] MEDS: SODIUM BICARB INJ 100 MEQ in STERILE WATER INJ 1,000 ML IV SCH ×2 (03:03→09:17)
[2018-05-17 04:15] LABS: Basophils % 0.2 % (0.0-0.8); Hemoglobin 8.7 GM/DL (12.0-16.0); Immature Granulocytes Absolute 0.46 #; Lymphocytes % 15.7 % (21.3-54.2); Mean Corpuscular HGB Conc 36.3 GM/DL (32-36); Mean Corpuscular Hemoglobin 29 PG (27-34); Mean Corpuscular Volume 80.3 FL (87-102); Monocytes # 0.5 10*3/uL (0.11-0.8); Monocytes % 7.9 % (1.7-12.7); NRBC # 0.02 10*3/uL; Neutrophils # 4.5 10*3/uL (1.4-7.4); Neutrophils % 69.2 % (38.7-73.9); Platelet Count 162 T/CUMM (130-400); Red Blood Count 2.99 MC/CUMM (3.8-5.5); Red Cell Distribution Width 15.3 % (9.3-17.3); White Blood Count 6.6 T/CUMM (4-12)
[2018-05-17 04:31] LABS: Albumin 2.6 G/DL (3.4-5.0); Bilirubin,Total 4.4 MG/DL (0.2-1.0); Osmolality,Calculated 287.9 MOS/KG (273-304); Potassium 4.2 MMOL/L (3.5-5.1); Total Protein 7.2 G/DL (6.4-8.3)
[2018-05-17 05:20] LABS: Band Neutrophils 16 % (0-10); Lymphocytes 20 % (20-55); Platelet Estimate Adequate; Segmented Neutrophils 54 % (50-85); Total Cells Counted 100
[2018-05-17 05:21] LABS: Anisocytosis 1+; Smudge Cells 1+
[2018-05-17] MEDS: methylPREDNISolone SOD SUC 40 MG/1 ML VIAL IV SCH (06:05)
[2018-05-17] MEDS: ACETAMINOPHEN 325 MG TABLET PO PRN (09:06)
[2018-05-17] MEDS: INSULIN REGULAR 100 UNIT/ML SUBCUT SCH ×4 (09:07→20:43)
[2018-05-17] MEDS: MUPIROCIN 2% OINT 22 GM TUBE TOP SCH ×3 (09:08→21:30)
[2018-05-17] MEDS: miSOPROStol 200 MCG TABLET PO SCH ×4 (09:08→20:42)
[2018-05-17] MEDS: glipiZIDE 5 MG TABLET PO SCH ×2 (09:08→16:24)
[2018-05-17] MEDS: BRIMONIDINE/TIMOLOL OPH SOLN 5 ML BOTTLE LEFT EYE SCH ×2 (09:08→20:43)
[2018-05-17] MEDS: PANTOPRAZOLE 40 MG TABLET PO SCH (09:09)
[2018-05-17] MEDS: DESITIN 4OZ/NYSTATIN 15 GRAM MIXTURE PASTE TOP SCH ×2 (09:09→20:44)
[2018-05-17] MEDS: predniSONE 20 MG TABLET PO SCH (09:11)
[2018-05-17] MEDS: DOCUSATE SODIUM 100 MG CAPSULE PO SCH ×2 (09:18→20:43)
[2018-05-17] MEDS: PIPERACILLIN/TAZOBACTAM 3,375 MG in SODIUM CHLORIDE 0.9% 100 ML IV SCH ×2 (13:28→22:00)
[2018-05-17] MEDS: SODIUM BICARB INJ 150 MEQ in STERILE WATER INJ 1,000 ML IV SCH (17:53)
[2018-05-17] MEDS ORDERED: INSULIN REGULAR 100 UNIT/ML IV ONE (18:27)
[2018-05-17] MEDS: TRAVOPROST 0.004% OPH SOLN 2.5 ML BOTTLE LEFT EYE SCH (20:43)
[2018-05-17] MEDS: INSULIN GLARGINE 100 UNIT/ML SUBCUT SCH (20:44)
[2018-05-18] MEDS: ALBUMIN 25% 25 GM in PREMIX 1 EACH IV SCH ×3 (02:23→19:02)
[2018-05-18 04:50] LABS: Hematocrit 23.6 VOL% (35.7-47.0); Hemoglobin 8.2 GM/DL (12.0-16.0); Immature Granulocytes % 3.6 %; Lymphocytes # 1.3 10*3/uL (1.4-4.0); Lymphocytes % 22.7 % (21.3-54.2); Mean Corpuscular HGB Conc 34.7 GM/DL (32-36); Mean Corpuscular Hemoglobin 29 PG (27-34); Mean Corpuscular Volume 82.2 FL (87-102); Mean Platelet Volume 11.2 FL (9.6-12.0); Monocytes # 0.7 10*3/uL (0.11-0.8); Monocytes % 12.8 % (1.7-12.7); Neutrophils # 3.4 10*3/uL (1.4-7.4); Neutrophils % 60.9 % (38.7-73.9); Platelet Count 218 T/CUMM (130-400); Red Blood Count 2.87 MC/CUMM (3.8-5.5); Red Cell Distribution Width 15.1 % (9.3-17.3); White Blood Count 5.5 T/CUMM (4-12)
[2018-05-18 05:09] LABS: Albumin 3.4 G/DL (3.4-5.0); Bilirubin,Total 3.3 MG/DL (0.2-1.0); Calcium 7.8 MG/DL (8.5-10.1); Potassium 3.6 MMOL/L (3.5-5.1); Total Protein 7.5 G/DL (6.4-8.3)
[2018-05-18] MEDS: predniSONE 20 MG TABLET PO SCH (08:23)
[2018-05-18] MEDS: BRIMONIDINE/TIMOLOL OPH SOLN 5 ML BOTTLE LEFT EYE SCH ×2 (08:23→20:32)
[2018-05-18] MEDS: MUPIROCIN 2% OINT 22 GM TUBE TOP SCH ×3 (08:24→21:16)
[2018-05-18] MEDS: PANTOPRAZOLE 40 MG TABLET PO SCH (08:24)
[2018-05-18] MEDS: DESITIN 4OZ/NYSTATIN 15 GRAM MIXTURE PASTE TOP SCH ×2 (08:24→20:33)
[2018-05-18] MEDS: miSOPROStol 200 MCG TABLET PO SCH ×4 (08:24→20:32)
[2018-05-18] MEDS: glipiZIDE 5 MG TABLET PO SCH ×2 (08:24→16:25)
[2018-05-18] MEDS: INSULIN REGULAR 100 UNIT/ML SUBCUT SCH ×4 (08:27→20:33)
[2018-05-18] MEDS: DOCUSATE SODIUM 100 MG CAPSULE PO SCH ×2 (08:30→20:52)
[2018-05-18] MEDS: ONDANSETRON 4 MG/2 ML VIAL IV PRN ×2 (09:30→16:26)
[2018-05-18] MEDS: PIPERACILLIN/TAZOBACTAM 3,375 MG in SODIUM CHLORIDE 0.9% 100 ML IV SCH (09:31)
[2018-05-18] MEDS ORDERED: CIPROFLOXACIN INJ 400 MG in PREMIX 1 EACH IV SCH (12:00)
[2018-05-18] MEDS: SODIUM BICARB INJ 150 MEQ in STERILE WATER INJ 1,000 ML IV SCH (17:42)
[2018-05-18] MEDS: TRAVOPROST 0.004% OPH SOLN 2.5 ML BOTTLE LEFT EYE SCH (20:33)
[2018-05-18] MEDS: INSULIN GLARGINE 100 UNIT/ML SUBCUT SCH (20:37)
[2018-05-19] MEDS: ALBUMIN 25% 25 GM in PREMIX 1 EACH IV SCH (02:22)
[2018-05-19 04:03] LABS: Eosinophils % 0.5 % (0.00-10.9); Hematocrit 22.8 VOL% (35.7-47.0); Hemoglobin 7.9 GM/DL (12.0-16.0); Immature Granulocytes % 1.3 %; Immature Granulocytes Absolute 0.08 #; Lymphocytes # 1.6 10*3/uL (1.4-4.0); Lymphocytes % 25.7 % (21.3-54.2); Mean Corpuscular HGB Conc 34.6 GM/DL (32-36); Mean Corpuscular Hemoglobin 29 PG (27-34); Mean Corpuscular Volume 84.4 FL (87-102); Mean Platelet Volume 10.4 FL (9.6-12.0); Monocytes # 0.4 10*3/uL (0.11-0.8); Monocytes % 6.4 % (1.7-12.7); NRBC # 0.02 10*3/uL; Neutrophils # 4.1 10*3/uL (1.4-7.4); Neutrophils % 66.1 % (38.7-73.9); Platelet Count 222 T/CUMM (130-400); Red Cell Distribution Width 14.8 % (9.3-17.3); White Blood Count 6.1 T/CUMM (4-12)
[2018-05-19 04:24] LABS: Albumin 3.6 G/DL (3.4-5.0); Calcium 7.5 MG/DL (8.5-10.1); Osmolality,Calculated 284.5 MOS/KG (273-304); Potassium 3.2 MMOL/L (3.5-5.1)
[2018-05-19] MEDS: miSOPROStol 200 MCG TABLET PO SCH (09:27)
[2018-05-19] MEDS: PANTOPRAZOLE 40 MG TABLET PO SCH (09:28)
[2018-05-19] MEDS: predniSONE 20 MG TABLET PO SCH (09:28)
[2018-05-19] MEDS: glipiZIDE 5 MG TABLET PO SCH (09:28)
[2018-05-19] MEDS: BRIMONIDINE/TIMOLOL OPH SOLN 5 ML BOTTLE LEFT EYE SCH (09:29)
[2018-05-19] MEDS: DESITIN 4OZ/NYSTATIN 15 GRAM MIXTURE PASTE TOP SCH (09:29)
[2018-05-19] MEDS: DOCUSATE SODIUM 100 MG CAPSULE PO SCH (09:29)
[2018-05-19] MEDS: MUPIROCIN 2% OINT 22 GM TUBE TOP SCH (09:29)
[2018-05-19] MEDS: ONDANSETRON 4 MG/2 ML VIAL IV PRN (09:33)
[2018-05-19] MEDS: SODIUM BICARB INJ 150 MEQ in STERILE WATER INJ 1,000 ML IV SCH (09:34)
[2018-05-19 09:50] VITALS: BP 138/88
[2018-05-19] MEDS: INSULIN REGULAR 100 UNIT/ML SUBCUT SCH (10:12)
[2018-05-19] MEDS ORDERED: HEPARIN LOCK FLUSH 500 UNIT/5 ML SYRINGE IV ONE (10:18)
== END 2018-05-19 11:15 | disposition home or self-care (01) | DRG 442 ==
LOC: EDUNIT# → N.ED 12:08 → SUATTDRO 17:28 → N.EDINP 17:28 → N.4E 18:43
PROVIDERS: ADMIT Internal Medicine Infectious Disease; ATTEND Internal Medicine

== ENCOUNTER 2020-06-11 00:16 | Inpatient (IN) ==
[2020-06-11 01:28] LABS: Basophils % 0.3 % (0.0-0.8); Eosinophils # 0.1 10*3/uL (0.0-0.87); Eosinophils % 0.7 % (0.00-10.9); Hematocrit 39.1 VOL% (35.7-47.0); Immature Granulocytes % 0.7 %; Lymphocytes # 1.5 10*3/uL (1.4-4.0); Mean Corpuscular HGB Conc 33.2 GM/DL (32-36); Mean Corpuscular Volume 85.9 FL (87-102); Mean Platelet Volume 9.6 FL (9.6-12.0); Monocytes % 4.4 % (1.7-12.7); Neutrophils % 82.9 % (38.7-73.9); Platelet Count 308 T/CUMM (130-400); Red Blood Count 4.55 MC/CUMM (3.8-5.5); Red Cell Distribution Width 13.9 % (9.3-17.3); White Blood Count 13.6 T/CUMM (4-12)
[2020-06-11] MEDS ORDERED: ACETAMINOPHEN 500 MG TABLET PO STA (01:47)
[2020-06-11] MEDS ORDERED: SODIUM CHLORIDE 0.9% 1,000 ML IV STA (01:47)
[2020-06-11 02:05] LABS: Ferritin 97.4 ng/ml (8-252)
[2020-06-11 02:12] LABS: Albumin 3.2 G/DL (3.4-5.0)
[2020-06-11 02:16] LABS: Bilirubin,Total 0.5 MG/DL (0.2-1.0); Total Protein 8.1 G/DL (6.4-8.3)
[2020-06-11 03:57] LABS: PT Patient Result 10.5 SECS (9.8-11.9); Partial Thromboplastin Time 22.4 SECS (23.9-33.8)
[2020-06-11] MEDS ORDERED: DEXTROSE 50% 25 GM/50 ML VIAL IV PRN (04:08)
[2020-06-11] MEDS ORDERED: GLUCAGON 1 MG VIAL IM PRN (04:08)
[2020-06-11] MEDS ORDERED: ONDANSETRON 4 MG/2 ML VIAL IV PRN ×2 (04:13→09:38)
[2020-06-11] MEDS ORDERED: ACETAMINOPHEN 325 MG TABLET PO PRN (04:13)
[2020-06-11] MEDS ORDERED: MORPHINE 4 MG/1 ML VIAL IV PRN (04:13)
[2020-06-11] MEDS ORDERED: hydrALAZINE 20 MG/1 ML VIAL IV PRN (04:13)
[2020-06-11] MEDS ORDERED: NICOTINE 21 MG/24 HR PATCH TRANSDERM PRN (04:13)
[2020-06-11] MEDS ORDERED: MAGNESIUM SULF RIDER 2 GM in PREMIX 1 EACH IV ONE (06:02)
[2020-06-11 06:31] LABS: Amorphous Crystals,Urine Occasional /HPF (Few); Bacteria,Urine Occasional /HPF (Few); Bilirubin,Urine Negative (Negative); Blood, Urine Negative (Negative); Glucose,Urine (UA) Negative (Negative); Ketones,Urine Negative (Negative); Mucus,Urine Occasional /LPF (Occasional); Nitrite,Urine Negative (Negative); Protein,Urine Negative; RBC,Urine 1 /HPF (0-4); Squamous Epithelial Cell,Urine Occasional /HPF (0-10); Urine Appearance CLEAR (Clear); Urine Color Yellow (Yellow); Urine Specific Gravity 1.018 (1.001-1.035); WBC,Urine 2 /HPF (0-6)
[2020-06-11] MEDS: INSULIN REGULAR 100 UNIT/ML SUBCUT SCH ×4 (07:22→18:16)
[2020-06-11] MEDS: PIPERACILLIN/TAZOBACTAM 3,375 MG in SODIUM CHLORIDE 0.9% 100 ML IV SCH ×3 (07:24→21:39)
[2020-06-11] MEDS ORDERED: TEMAZEPAM 7.5 MG CAPSULE PO PRN (09:38)
[2020-06-11] MEDS ORDERED: traMADol 50 MG TABLET PO PRN (09:38)
[2020-06-11] MEDS ORDERED: MYLANTA/LIDO VISC 2:1 300 ML BOTTLE SWISH/SPIT PRN (09:38)
[2020-06-11] MEDS ORDERED: MYLANTA/LIDO VISC 2:1 300 ML BOTTLE SWISH/SWAL PRN (09:38)
[2020-06-11] MEDS ORDERED: PROMETHAZINE INJ 25 MG in SODIUM CHLORIDE 0.9% 50 ML IV PRN (09:38)
[2020-06-11] MEDS ORDERED: guaiFENesin 200 MG/10 ML UDCUP PO PRN (09:38)
[2020-06-11] MEDS ORDERED: chlorproMAZINE 25 MG TABLET PO PRN (09:38)
[2020-06-11] MEDS ORDERED: BENZTROPINE 2 MG/2 ML AMP IV PRN (09:38)
[2020-06-11] MEDS ORDERED: LACTULOSE 20 GM/30 ML UDCUP PO PRN (09:38)
[2020-06-11] MEDS ORDERED: chlorproMAZINE INJ 50 MG in SODIUM CHLORIDE 0.9% 100 ML IV PRN (09:38)
[2020-06-11] MEDS ORDERED: chlorproMAZINE INJ 25 MG in SODIUM CHLORIDE 0.9% 100 ML IV PRN (09:38)
[2020-06-11] MEDS ORDERED: ALPRAZolam 0.25 MG TABLET PO PRN (09:38)
[2020-06-11] MEDS ORDERED: diphenhydrAMINE CAP 25 MG CAPSULE PO PRN (09:38)
[2020-06-11] MEDS ORDERED: ALUMINUM/MAGNES/SIMETH MAX STR 30 ML UDCUP PO PRN (09:38)
[2020-06-11] MEDS ORDERED: MAGNESIUM HYDROXIDE SUSP 30 ML UDCUP PO PRN (09:38)
[2020-06-11] MEDS ORDERED: LOPERAMIDE 2 MG CAPSULE PO PRN ×2 (09:38)
[2020-06-11 13:01] LABS: Total Protein,Body Fluid 5.3 G/DL
[2020-06-11] MEDS: ENOXAPARIN 40 MG/0.4 ML SYRINGE SUBCUT SCH (13:29)
[2020-06-11] MEDS ORDERED: ONDANSETRON 4 MG TABLET PO PRN (14:11)
[2020-06-11] MEDS ORDERED: ERGOCALCIFEROL 50,000 UNIT CAPSULE PO SCH (14:30)
[2020-06-11] MEDS: BRIMONIDINE/TIMOLOL OPH SOLN 5 ML BOTTLE LEFT EYE SCH ×2 (15:00→21:39)
[2020-06-11] MEDS: BRIMONIDINE 0.1% OPH SOLN 5 ML BOTTLE LEFT EYE SCH ×2 (15:00→21:38)
[2020-06-11] MEDS: CETIRIZINE 10 MG TABLET PO SCH (15:01)
[2020-06-11] MEDS: amLODIPine 10 MG TABLET PO SCH (15:01)
[2020-06-11] MEDS: GABAPENTIN 400 MG CAPSULE PO SCH ×2 (15:01→21:38)
[2020-06-11] MEDS: DIVALPROEX ER 500 MG TABLET PO SCH (15:01)
[2020-06-11] MEDS: MULTIVITAMIN (CENTRUM) TABLET PO SCH (15:01)
[2020-06-11] MEDS: TAMOXIFEN 10 MG TABLET PO SCH (15:02)
[2020-06-11] MEDS: CITALOPRAM 40 MG TABLET PO SCH (15:02)
[2020-06-11] MEDS: OXYBUTYNIN 5 MG TABLET PO SCH ×2 (15:05→21:38)
[2020-06-11] MEDS: INSULIN GLARGINE 100 UNIT/ML SUBCUT SCH (21:39)
[2020-06-11] MEDS: TRAVOPROST 0.004% OPH SOLN 2.5 ML BOTTLE LEFT EYE SCH (21:39)
[2020-06-12] MEDS: INSULIN REGULAR 100 UNIT/ML SUBCUT SCH ×5 (00:30→12:30)
[2020-06-12] MEDS: PIPERACILLIN/TAZOBACTAM 3,375 MG in SODIUM CHLORIDE 0.9% 100 ML IV SCH ×3 (04:14→20:59)
[2020-06-12 06:28] LABS: Basophils % 0.5 % (0.0-0.8); Eosinophils # 0.2 10*3/uL (0.0-0.87); Eosinophils % 2.2 % (0.00-10.9); Hemoglobin 12.1 GM/DL (12.0-16.0); Immature Granulocytes % 0.4 %; Immature Granulocytes Absolute 0.03 #; Lymphocytes % 25.4 % (21.3-54.2); Mean Corpuscular HGB Conc 33.6 GM/DL (32-36); Mean Corpuscular Volume 85.7 FL (87-102); Mean Platelet Volume 9.1 FL (9.6-12.0); Monocytes % 9.5 % (1.7-12.7); Platelet Count 261 T/CUMM (130-400); Red Cell Distribution Width 13.6 % (9.3-17.3); White Blood Count 7.9 T/CUMM (4-12)
[2020-06-12 06:46] LABS: Albumin 2.7 G/DL (3.4-5.0); Bilirubin,Total 0.8 MG/DL (0.2-1.0); Calcium 8.9 MG/DL (8.5-10.1); Osmolality,Calculated 275.7 MOS/KG (273-304); Total Protein 7.3 G/DL (6.4-8.3)
[2020-06-12] MEDS: amLODIPine 10 MG TABLET PO SCH (08:26)
[2020-06-12] MEDS: MULTIVITAMIN (CENTRUM) TABLET PO SCH (08:26)
[2020-06-12] MEDS: PANTOPRAZOLE 40 MG TABLET PO SCH (08:26)
[2020-06-12] MEDS: BRIMONIDINE 0.1% OPH SOLN 5 ML BOTTLE LEFT EYE SCH ×3 (08:26→21:00)
[2020-06-12] MEDS: DIVALPROEX ER 500 MG TABLET PO SCH (08:26)
[2020-06-12] MEDS: CITALOPRAM 40 MG TABLET PO SCH (08:26)
[2020-06-12] MEDS: TAMOXIFEN 10 MG TABLET PO SCH (08:26)
[2020-06-12] MEDS: OXYBUTYNIN 5 MG TABLET PO SCH ×2 (08:26→21:00)
[2020-06-12] MEDS: CETIRIZINE 10 MG TABLET PO SCH (08:27)
[2020-06-12] MEDS: GABAPENTIN 400 MG CAPSULE PO SCH ×3 (08:27→21:00)
[2020-06-12] MEDS: BRIMONIDINE/TIMOLOL OPH SOLN 5 ML BOTTLE LEFT EYE SCH ×3 (08:27→21:00)
[2020-06-12] MEDS: ENOXAPARIN 40 MG/0.4 ML SYRINGE SUBCUT SCH (13:02)
[2020-06-12] MEDS: INSULIN LISPRO 100 UNIT/ML SUBCUT SCH ×3 (18:01→21:36)
[2020-06-12] MEDS: TRAVOPROST 0.004% OPH SOLN 2.5 ML BOTTLE LEFT EYE SCH (21:00)
[2020-06-12] MEDS: INSULIN GLARGINE 100 UNIT/ML SUBCUT SCH (21:36)
[2020-06-13] MEDS: PIPERACILLIN/TAZOBACTAM 3,375 MG in SODIUM CHLORIDE 0.9% 100 ML IV SCH (04:28)
[2020-06-13 05:29] LABS: Basophils % 0.4 % (0.0-0.8); Eosinophils # 0.2 10*3/uL (0.0-0.87); Eosinophils % 2.1 % (0.00-10.9); Hematocrit 35.1 VOL% (35.7-47.0); Hemoglobin 11.8 GM/DL (12.0-16.0); Immature Granulocytes % 0.4 %; Immature Granulocytes Absolute 0.03 #; Lymphocytes # 1.7 10*3/uL (1.4-4.0); Lymphocytes % 23.2 % (21.3-54.2); Mean Corpuscular HGB Conc 33.6 GM/DL (32-36); Mean Corpuscular Volume 84.8 FL (87-102); Mean Platelet Volume 9.1 FL (9.6-12.0); Monocytes % 8.1 % (1.7-12.7); Neutrophils % 65.8 % (38.7-73.9); Platelet Count 252 T/CUMM (130-400); Red Blood Count 4.14 MC/CUMM (3.8-5.5); Red Cell Distribution Width 13.7 % (9.3-17.3); White Blood Count 7.5 T/CUMM (4-12)
[2020-06-13 05:48] LABS: Calcium 8.6 MG/DL (8.5-10.1); Osmolality,Calculated 276.8 MOS/KG (273-304)
[2020-06-13] MEDS: INSULIN LISPRO 100 UNIT/ML SUBCUT SCH ×8 (07:44→21:29)
[2020-06-13] MEDS: TAMOXIFEN 10 MG TABLET PO SCH (08:26)
[2020-06-13] MEDS: amLODIPine 10 MG TABLET PO SCH (08:26)
[2020-06-13] MEDS: CITALOPRAM 40 MG TABLET PO SCH (08:26)
[2020-06-13] MEDS: PANTOPRAZOLE 40 MG TABLET PO SCH (08:26)
[2020-06-13] MEDS: MULTIVITAMIN (CENTRUM) TABLET PO SCH (08:26)
[2020-06-13] MEDS: DIVALPROEX ER 500 MG TABLET PO SCH (08:26)
[2020-06-13] MEDS: GABAPENTIN 400 MG CAPSULE PO SCH ×3 (08:26→21:29)
[2020-06-13] MEDS: OXYBUTYNIN 5 MG TABLET PO SCH ×2 (08:26→21:29)
[2020-06-13] MEDS: CETIRIZINE 10 MG TABLET PO SCH (08:27)
[2020-06-13] MEDS: BRIMONIDINE/TIMOLOL OPH SOLN 5 ML BOTTLE LEFT EYE SCH ×3 (08:27→21:28)
[2020-06-13] MEDS: BRIMONIDINE 0.1% OPH SOLN 5 ML BOTTLE LEFT EYE SCH ×3 (08:27→21:32)
[2020-06-13] MEDS ORDERED: MAGNESIUM SULF RIDER 2 GM in PREMIX 1 EACH IV ONE (12:00)
[2020-06-13] MEDS: TRAVOPROST 0.004% OPH SOLN 2.5 ML BOTTLE LEFT EYE SCH (21:28)
[2020-06-13] MEDS: INSULIN GLARGINE 100 UNIT/ML SUBCUT SCH (21:32)
[2020-06-14] MEDS ORDERED: ceFAZolin 1,000 MG in SYRINGE 1 EACH IV ONE (06:00)
[2020-06-14 06:13] LABS: Basophils % 0.4 % (0.0-0.8); Eosinophils # 0.2 10*3/uL (0.0-0.87); Eosinophils % 1.7 % (0.00-10.9); Hematocrit 38.2 VOL% (35.7-47.0); Hemoglobin 12.6 GM/DL (12.0-16.0); Immature Granulocytes % 0.6 %; Immature Granulocytes Absolute 0.06 #; Lymphocytes # 2.2 10*3/uL (1.4-4.0); Mean Corpuscular Volume 87.2 FL (87-102); Mean Platelet Volume 9.6 FL (9.6-12.0); Monocytes % 6.5 % (1.7-12.7); Neutrophils % 68.8 % (38.7-73.9); Platelet Count 331 T/CUMM (130-400); Red Blood Count 4.38 MC/CUMM (3.8-5.5); Red Cell Distribution Width 13.3 % (9.3-17.3)
[2020-06-14 06:26] LABS: Calcium 8.9 MG/DL (8.5-10.1); Osmolality,Calculated 276.1 MOS/KG (273-304)
[2020-06-14] MEDS: INSULIN LISPRO 100 UNIT/ML SUBCUT SCH ×7 (08:56→22:20)
[2020-06-14] MEDS: TAMOXIFEN 10 MG TABLET PO SCH (08:57)
[2020-06-14] MEDS: GABAPENTIN 400 MG CAPSULE PO SCH ×3 (08:57→21:25)
[2020-06-14] MEDS: CITALOPRAM 40 MG TABLET PO SCH (08:57)
[2020-06-14] MEDS: OXYBUTYNIN 5 MG TABLET PO SCH ×2 (08:57→21:24)
[2020-06-14] MEDS: MULTIVITAMIN (CENTRUM) TABLET PO SCH (08:57)
[2020-06-14] MEDS: DIVALPROEX ER 500 MG TABLET PO SCH (08:57)
[2020-06-14] MEDS: amLODIPine 10 MG TABLET PO SCH (08:57)
[2020-06-14] MEDS: PANTOPRAZOLE 40 MG TABLET PO SCH (08:58)
[2020-06-14] MEDS: CETIRIZINE 10 MG TABLET PO SCH (08:58)
[2020-06-14] MEDS: BRIMONIDINE 0.1% OPH SOLN 5 ML BOTTLE LEFT EYE SCH ×3 (09:19→21:26)
[2020-06-14] MEDS: BRIMONIDINE/TIMOLOL OPH SOLN 5 ML BOTTLE LEFT EYE SCH ×3 (09:19→21:26)
[2020-06-14] MEDS ORDERED: PACLITAXEL IV ONE (10:00)
[2020-06-14] MEDS ORDERED: LACTATED RINGERS 1,000 ML IV SCH (10:00)
[2020-06-14] MEDS ORDERED: DEXAMETHASONE 10 MG/1 ML VIAL IV ONE (10:00)
[2020-06-14] MEDS ORDERED: diphenhydrAMINE 50 MG/1 ML VIAL IV ONE (10:00)
[2020-06-14] MEDS ORDERED: FAMOTIDINE 20 MG TABLET PO ONE (10:00)
[2020-06-14] MEDS ORDERED: SODIUM CHLORIDE 0.9% IV ONE ×2 (10:00→11:00)
[2020-06-14] MEDS ORDERED: TRASTUZUMAB IV ONE (11:00)
[2020-06-14] MEDS ORDERED: ACETAMINOPHEN 500 MG TABLET PO ONE (11:00)
[2020-06-14] MEDS ORDERED: FLUCONAZOLE 100 MG TABLET PO ONE (11:17)
[2020-06-14] MEDS ORDERED: DESITIN 4OZ/NYSTATIN 15 GRAM MIXTURE PASTE TOP PRN (11:17)
[2020-06-14] MEDS ORDERED: LIDOCAINE 2% 5 ML VIAL ONE (11:36)
[2020-06-14] MEDS ORDERED: propofoL 200 MG/20 ML VIAL IV ONE (11:36)
[2020-06-14] MEDS ORDERED: fentaNYL 100 MCG/2 ML VIAL ONE (11:37)
[2020-06-14] MEDS ORDERED: SODIUM CHLORIDE 0.9% 250 ML IV ONE (11:37)
[2020-06-14] MEDS ORDERED: KETAMINE 500 MG/10 ML VIAL ONE (11:37)
[2020-06-14] MEDS ORDERED: MIDAZOLAM 2 MG/2 ML VIAL ONE (11:37)
[2020-06-14] MEDS ORDERED: ONDANSETRON 4 MG/2 ML VIAL ONE (11:37)
[2020-06-14] MEDS ORDERED: ONDANSETRON 4 MG/2 ML VIAL IV PRN (12:04)
[2020-06-14] MEDS: HYDROmorphone 2 MG/1 ML VIAL IV PRN ×2 (12:06→12:12)
[2020-06-14] MEDS: INSULIN GLARGINE 100 UNIT/ML SUBCUT SCH (14:37)
[2020-06-14] MEDS: cefTRIAXone 1,000 MG in SYRINGE 1 EACH IV SCH (14:39)
[2020-06-14] MEDS: ENOXAPARIN 40 MG/0.4 ML SYRINGE SUBCUT SCH (18:23)
[2020-06-14] MEDS: TRAVOPROST 0.004% OPH SOLN 2.5 ML BOTTLE LEFT EYE SCH (21:26)
[2020-06-15] MEDS: INSULIN LISPRO 100 UNIT/ML SUBCUT SCH ×4 (07:50→12:15)
[2020-06-15] MEDS: CETIRIZINE 10 MG TABLET PO SCH (09:31)
[2020-06-15] MEDS: DIVALPROEX ER 500 MG TABLET PO SCH (09:31)
[2020-06-15] MEDS: CITALOPRAM 40 MG TABLET PO SCH (09:31)
[2020-06-15] MEDS: amLODIPine 10 MG TABLET PO SCH (09:31)
[2020-06-15] MEDS: OXYBUTYNIN 5 MG TABLET PO SCH (09:31)
[2020-06-15] MEDS: MULTIVITAMIN (CENTRUM) TABLET PO SCH (09:31)
[2020-06-15] MEDS: BRIMONIDINE 0.1% OPH SOLN 5 ML BOTTLE LEFT EYE SCH (09:32)
[2020-06-15] MEDS: GABAPENTIN 400 MG CAPSULE PO SCH (09:32)
[2020-06-15] MEDS: BRIMONIDINE/TIMOLOL OPH SOLN 5 ML BOTTLE LEFT EYE SCH (09:32)
[2020-06-15] MEDS: TAMOXIFEN 10 MG TABLET PO SCH (09:42)
[2020-06-15] MEDS: PANTOPRAZOLE 40 MG TABLET PO SCH (09:42)
[2020-06-15 11:37] VITALS: BP 108/53
[2020-06-15] MEDS: cefTRIAXone 1,000 MG in SYRINGE 1 EACH IV SCH (12:03)
[2020-06-15] MEDS: ENOXAPARIN 40 MG/0.4 ML SYRINGE SUBCUT SCH (14:59)
== END 2020-06-15 14:20 | disposition home or self-care (01) | DRG 382 ==
LOC: N.ED 00:16 → N.EDINP 04:13 → SUATTDRO 04:13 → N.EDINP 06:00 → N.4E 06:56
PROVIDERS: ADMIT Internal Medicine; ATTEND Internal Medicine

== ENCOUNTER 2022-06-23 07:23 | Observation (INO) ==
[2022-06-23] MEDS ORDERED: SODIUM CHLORIDE 0.9% 1,000 ML IV STA (08:06)
[2022-06-23 08:20] LABS: Basophils % 0.5 % (0.0-0.8); Eosinophils % 0.1 % (0.00-10.9); Hematocrit 36.2 VOL% (35.7-47.0); Hemoglobin 11.4 GM/DL (12.0-16.0); Immature Granulocytes % 0.5 %; Immature Granulocytes Absolute 0.04 #; Lymphocytes # 0.9 10*3/uL (1.4-4.0); Lymphocytes % 12.3 % (21.3-54.2); Mean Corpuscular HGB Conc 31.5 GM/DL (32-36); Mean Platelet Volume 10.5 FL (9.6-12.0); Monocytes # 0.5 10*3/uL (0.11-0.8); Neutrophils % 80.6 % (38.7-73.9); Platelet Count 340 T/CUMM (130-400); Red Blood Count 3.98 MC/CUMM (3.8-5.5); Red Cell Distribution Width 18.1 % (9.3-17.3); White Blood Count 7.5 T/CUMM (4-12)
[2022-06-23 08:40] LABS: Albumin 2.7 G/DL (3.4-5.0); Bilirubin,Total 0.5 MG/DL (0.20-1.00); Calcium 9.5 MG/DL (8.5-10.1); Potassium 3.9 MMOL/L (3.5-5.1); Total Protein 7.5 G/DL (6.4-8.2)
[2022-06-23 08:52] LABS: Albumin 2.6 G/DL (3.4-5.0); Bilirubin,Direct 0.2 MG/DL (0.0-0.20); Bilirubin,Indirect 0.3 MG/DL (0.0-1.0); Bilirubin,Total 0.5 MG/DL (0.20-1.00); Total Protein 7.6 G/DL (6.4-8.2)
[2022-06-23] MEDS ORDERED: diphenhydrAMINE 50 MG/1 ML VIAL IV STA (09:36)
[2022-06-23] MEDS ORDERED: methylPREDNISolone SOD SUC 125 MG/2 ML VIAL IV STA (09:36)
[2022-06-23 10:01] LABS: Bilirubin,Urine Negative (Negative); Blood, Urine Negative (Negative); Glucose,Urine (UA) Negative (Negative); Ketones,Urine Negative (Negative); Mucus,Urine Few /LPF (Occasional); Nitrite,Urine Negative (Negative); Protein,Urine Negative (Negative); RBC,Urine 1 /HPF (0-4); Squamous Epithelial Cell,Urine Occasional /HPF (0-10); Urine Appearance Clear (Clear); Urine Color Yellow (Yellow); Urine pH 5.5 (4.5-8.0)
[2022-06-23] MEDS ORDERED: HEPARIN LOCK FLUSH 500 UNIT/5 ML SYRINGE IV ONE (10:14)
[2022-06-23] MEDS ORDERED: HEPARIN LOCK FLUSH 500 UNIT/5 ML SYRINGE IV STA (10:15)
[2022-06-23] MEDS ORDERED: HYDROmorphone 1 MG/1 ML SYRINGE IV STA (11:56)
[2022-06-23] MEDS ORDERED: ONDANSETRON 4 MG/2 ML VIAL IV STA (11:56)
[2022-06-23] MEDS ORDERED: ACETAMINOPHEN 325 MG TABLET PO PRN (13:15)
[2022-06-23] MEDS ORDERED: DEXTROSE 50% 25 GM/50 ML VIAL IV PRN (13:15)
[2022-06-23] MEDS ORDERED: hydrALAZINE 20 MG/1 ML VIAL IV PRN (13:15)
[2022-06-23] MEDS ORDERED: ONDANSETRON 4 MG/2 ML VIAL IV PRN (13:15)
[2022-06-23] MEDS ORDERED: DEXTROSE 10% 250 ML BAG IV PRN (13:15)
[2022-06-23] MEDS ORDERED: GLUCAGON 1 MG VIAL IM PRN ×2 (13:15)
[2022-06-23] MEDS ORDERED: ENOXAPARIN 40 MG/0.4 ML SYRINGE SUBCUT SCH (13:30)
[2022-06-23] MEDS ORDERED: DOCUSATE SODIUM 100 MG CAPSULE PO PRN (13:33)
[2022-06-23] MEDS ORDERED: SUMAtriptan 25 MG TABLET PO PRN (13:33)
[2022-06-23] MEDS ORDERED: FUROSEMIDE 20 MG/2 ML VIAL IV SCH (16:00)
[2022-06-23] MEDS: GABAPENTIN 400 MG CAPSULE PO SCH ×2 (16:51→21:09)
[2022-06-23] MEDS: FUROSEMIDE 20 MG TABLET PO SCH (16:51)
[2022-06-23] MEDS: INSULIN LISPRO 100 UNIT/ML SUBCUT SCH ×2 (18:14→23:58)
[2022-06-23] MEDS ORDERED: FUROSEMIDE 20 MG TABLET PO SCH (21:00)
[2022-06-23] MEDS ORDERED: BIMATOPROST 0.01% OPH SOLN 2.5 ML BOTTLE LEFT EYE SCH (21:00)
[2022-06-23] MEDS: OXYBUTYNIN 5 MG TABLET PO SCH (21:09)
[2022-06-23] MEDS: BRIMONIDINE 0.15% OPH SOLN 1 DROP/DROPS BOTTLE LEFT EYE SCH (21:09)
[2022-06-23] MEDS: TIMOLOL 0.5% OPH SOLN 5 ML BOTTLE LEFT EYE SCH (21:09)
[2022-06-24] MEDS: INSULIN LISPRO 100 UNIT/ML SUBCUT SCH ×2 (05:38→11:21)
[2022-06-24 06:20] LABS: Basophils % 0.3 % (0.0-0.8); Hematocrit 35.4 VOL% (35.7-47.0); Hemoglobin 11.4 GM/DL (12.0-16.0); Immature Granulocytes % 0.5 %; Immature Granulocytes Absolute 0.04 #; Lymphocytes # 1.2 10*3/uL (1.4-4.0); Lymphocytes % 15.4 % (21.3-54.2); Mean Corpuscular HGB Conc 32.2 GM/DL (32-36); Mean Corpuscular Volume 89.6 FL (87-102); Mean Platelet Volume 10.6 FL (9.6-12.0); Monocytes # 0.9 10*3/uL (0.11-0.8); Monocytes % 11.8 % (1.7-12.7); Platelet Count 388 T/CUMM (130-400); Red Blood Count 3.95 MC/CUMM (3.8-5.5)
[2022-06-24 06:42] LABS: Albumin 2.7 G/DL (3.4-5.0); Bilirubin,Total 0.4 MG/DL (0.20-1.00); Calcium 9.7 MG/DL (8.5-10.1); Osmolality,Calculated 271.5 MOS/KG (273-304); Potassium 4.5 MMOL/L (3.5-5.1); Total Protein 8.4 G/DL (6.4-8.2)
[2022-06-24] MEDS: FUROSEMIDE 20 MG TABLET PO SCH (08:58)
[2022-06-24] MEDS: GABAPENTIN 400 MG CAPSULE PO SCH (08:59)
[2022-06-24] MEDS ORDERED: MULTIVITAMIN (CENTRUM) TABLET PO SCH (09:00)
[2022-06-24] MEDS ORDERED: amLODIPine 10 MG TABLET PO SCH (09:00)
[2022-06-24] MEDS ORDERED: CETIRIZINE 10 MG TABLET PO SCH (09:00)
[2022-06-24] MEDS ORDERED: MAGNESIUM CHLORIDE 64 MG TABLET PO SCH (09:00)
[2022-06-24] MEDS ORDERED: PANTOPRAZOLE 40 MG TABLET PO SCH (09:00)
[2022-06-24] MEDS: OXYBUTYNIN 5 MG TABLET PO SCH (09:00)
[2022-06-24] MEDS: TIMOLOL 0.5% OPH SOLN 5 ML BOTTLE LEFT EYE SCH (09:00)
[2022-06-24] MEDS ORDERED: ASPIRIN EC 81 MG TABLET PO SCH (09:00)
[2022-06-24] MEDS ORDERED: ANASTROZOLE 1 MG TABLET PO SCH (09:00)
[2022-06-24] MEDS: BRIMONIDINE 0.15% OPH SOLN 1 DROP/DROPS BOTTLE LEFT EYE SCH (09:01)
[2022-06-24] MEDS ORDERED: HEPARIN LOCK FLUSH 500 UNIT/5 ML SYRINGE IV ONE (10:20)
[2022-06-24 11:05] VITALS: BP 138/82
[2022-06-29] MEDS ORDERED: ERGOCALCIFEROL 50,000 UNIT CAPSULE PO SCH (09:00)
== END 2022-06-24 12:18 | disposition home or self-care (01) ==
LOC: N.EDINP 07:23 → N.ED 07:23 → SUATTDRO 13:15 → N.TELES 14:35
PROVIDERS: ADMIT Internal Medicine Geriatric Medicine; ATTEND Internal Medicine Geriatric Medicine

== ENCOUNTER 2022-08-13 11:08 | Inpatient (IN) ==
[2022-08-13] MEDS ORDERED: SODIUM CHLORIDE 0.9% 1,000 ML IV STA (11:59)
[2022-08-13] MEDS ORDERED: ACETAMINOPHEN 500 MG TABLET PO STA (12:30)
[2022-08-13 12:31] LABS: Basophils % 3.3 % (0.0-0.8); Eosinophils % 0.8 % (0.00-10.9); Hematocrit 26.7 VOL% (35.7-47.0); Hemoglobin 8.8 GM/DL (12.0-16.0); Immature Granulocytes % 0.8 %; Immature Granulocytes Absolute 0.01 #; Lymphocytes # 0.7 10*3/uL (1.4-4.0); Lymphocytes % 55.4 % (21.3-54.2); Mean Corpuscular Volume 87.5 FL (87-102); Mean Platelet Volume 11.9 FL (9.6-12.0); Monocytes # 0.2 10*3/uL (0.11-0.8); Monocytes % 16.5 % (1.7-12.7); Neutrophils % 23.2 % (38.7-73.9); Platelet Count 169 T/CUMM (130-400); Red Blood Count 3.05 MC/CUMM (3.8-5.5); Red Cell Distribution Width 19.1 % (9.3-17.3); White Blood Count 1.2 T/CUMM (4-12)
[2022-08-13] MEDS ORDERED: ACETAMINOPHEN 500 MG TABLET ONE (12:31)
[2022-08-13 12:40] LABS: Albumin 2.1 G/DL (3.4-5.0); Bilirubin,Total 0.9 MG/DL (0.20-1.00); Calcium 7.9 MG/DL (8.5-10.1); Osmolality,Calculated 269.4 MOS/KG (273-304); Total Protein 6.6 G/DL (6.4-8.2)
[2022-08-13] MEDS ORDERED: SODIUM CHLORIDE 0.9% 2,100 ML IV ONE (12:45)
[2022-08-13 12:53] LABS: Band Neutrophils 1 % (0-10); Eosinophils 1 % (0-10); Lymphocytes 58 % (20-55); Platelet Estimate Adequate; Total Cells Counted 100
[2022-08-13 12:54] LABS: Atypical Lymphocytes Few
[2022-08-13] MEDS ORDERED: LEVOFLOXACIN INJ 750 MG/150 ML PREMIX IV SCH (13:00)
[2022-08-13] MEDS ORDERED: ACETAMINOPHEN 325 MG TABLET PO PRN (13:16)
[2022-08-13] MEDS ORDERED: GLUCAGON 1 MG VIAL IM PRN (13:16)
[2022-08-13] MEDS ORDERED: VANCOMYCIN INJ 1,500 MG in SODIUM CHLORIDE 0.9% 500 ML IV ONE (13:16)
[2022-08-13] MEDS ORDERED: DEXTROSE 50% 25 GM/50 ML SYRINGE IV PRN (13:16)
[2022-08-13] MEDS ORDERED: POTASSIUM CHLORIDE 20 MEQ TABLET PO ONE (13:17)
[2022-08-13] MEDS: MEROPENEM 500 MG in SODIUM CHLORIDE 0.9% 100 ML IV SCH ×2 (13:28→21:25)
[2022-08-13] MEDS ORDERED: ENOXAPARIN 40 MG/0.4 ML SYRINGE SUBCUT SCH (13:30)
[2022-08-13 13:38] LABS: Bacteria,Urine Occasional /HPF (Few); Bilirubin,Urine Negative (Negative); Blood, Urine Negative (Negative); Glucose,Urine (UA) 50 mg/dL (Negative); Hyaline Casts,Urine 3 /LPF (0-3); Ketones,Urine Negative (Negative); Mucus,Urine Occasional /LPF (Occasional); Nitrite,Urine Negative (Negative); Protein,Urine Negative (Negative); RBC,Urine 1 /HPF (0-4); Squamous Epithelial Cell,Urine Occasional /HPF (0-10); Urine Appearance Slightly Hazy (Clear); Urine Color Yellow (Yellow); Urine Specific Gravity 1.005 (1.001-1.035); Urine Urobilinogen < 2.0 eU/dL (<2.0)
[2022-08-13 13:51] LABS: Thyroid Stimulating Hormone 2.22 uIU/ml (0.358-3.74)
[2022-08-13] MEDS: PROMETHAZINE 25 MG/1 ML VIAL IM PRN ×2 (14:24→21:24)
[2022-08-13] MEDS: POTASSIUM CHLORIDE INJ 40 MEQ in LACTATED RINGERS 1,000 ML IV SCH (16:09)
[2022-08-13] MEDS: INSULIN LISPRO 100 UNIT/ML SUBCUT SCH ×2 (17:48→21:25)
[2022-08-13] MEDS ORDERED: POTASSIUM CHLORIDE 20 MEQ TABLET PO SCH (21:00)
[2022-08-13] MEDS: DOCUSATE SODIUM 100 MG CAPSULE PO SCH (21:23)
[2022-08-13] MEDS: HEPARIN 5,000 UNIT/1 ML VIAL SUBCUT SCH (21:25)
[2022-08-14] MEDS: POTASSIUM CHLORIDE INJ 40 MEQ in LACTATED RINGERS 1,000 ML IV SCH ×2 (00:50→10:18)
[2022-08-14] MEDS: MEROPENEM 500 MG in SODIUM CHLORIDE 0.9% 100 ML IV SCH ×3 (02:20→17:45)
[2022-08-14] MEDS: PROMETHAZINE 25 MG/1 ML VIAL IM PRN (04:04)
[2022-08-14 05:36] LABS: Calcium 7.2 MG/DL (8.5-10.1); Osmolality,Calculated 275.4 MOS/KG (273-304); Potassium 4.9 MMOL/L (3.5-5.1)
[2022-08-14 07:04] LABS: Basophils % 1.8 % (0.0-0.8); Eosinophils % 0.6 % (0.00-10.9); Hematocrit 24.2 VOL% (35.7-47.0); Immature Granulocytes % 1.8 %; Immature Granulocytes Absolute 0.03 #; Lymphocytes # 0.9 10*3/uL (1.4-4.0); Lymphocytes % 52.8 % (21.3-54.2); Mean Corpuscular HGB Conc 33.1 GM/DL (32-36); Mean Corpuscular Volume 87.4 FL (87-102); Mean Platelet Volume 11.2 FL (9.6-12.0); Monocytes # 0.4 10*3/uL (0.11-0.8); Monocytes % 22.7 % (1.7-12.7); Neutrophils % 20.3 % (38.7-73.9); Platelet Count 160 T/CUMM (130-400); Red Blood Count 2.77 MC/CUMM (3.8-5.5); Red Cell Distribution Width 19.4 % (9.3-17.3); White Blood Count 1.6 T/CUMM (4-12)
[2022-08-14 07:28] LABS: Band Neutrophils 1 % (0-10); Eosinophils 2 % (0-10); Lymphocytes 54 % (20-55); Platelet Estimate Adequate; Total Cells Counted 100
[2022-08-14 07:29] LABS: Atypical Lymphocytes Few; Hypochromia Slight; Microcytosis Slight
[2022-08-14] MEDS ORDERED: POTASSIUM CHLORIDE INJ 20 MEQ in LACTATED RINGERS 1,000 ML IV SCH (09:00)
[2022-08-14] MEDS ORDERED: VANCOMYCIN INJ 1,500 MG in SODIUM CHLORIDE 0.9% 500 ML IV SCH (09:00)
[2022-08-14] MEDS: PANTOPRAZOLE 40 MG TABLET PO SCH (10:04)
[2022-08-14] MEDS: DOCUSATE SODIUM 100 MG CAPSULE PO SCH ×2 (10:04→22:16)
[2022-08-14] MEDS: HEPARIN 5,000 UNIT/1 ML VIAL SUBCUT SCH ×2 (10:05→22:16)
[2022-08-14] MEDS: INSULIN LISPRO 100 UNIT/ML SUBCUT SCH ×4 (10:15→22:16)
[2022-08-14] MEDS ORDERED: BENZOCAINE/MENTHOL LOZENGE 18/BOX PO PRN (10:40)
[2022-08-14] MEDS: VANCOMYCIN INJ 1,750 MG in SODIUM CHLORIDE 0.9% 500 ML IV SCH ×2 (11:32→22:17)
[2022-08-14] MEDS: ONDANSETRON 4 MG/2 ML VIAL IV PRN (12:55)
[2022-08-14] MEDS: FILGRASTIM-SNDZ 300 MCG/0.5 ML SYRINGE SUBCUT SCH (16:46)
[2022-08-14] MEDS: ZALEPLON 5 MG CAPSULE PO PRN (22:16)
[2022-08-15] MEDS: MEROPENEM 500 MG in SODIUM CHLORIDE 0.9% 100 ML IV SCH ×4 (01:32→22:38)
[2022-08-15] MEDS ORDERED: FUROSEMIDE 40 MG/4 ML VIAL IV ONE ×2 (03:30→10:07)
[2022-08-15 07:45] LABS: Basophils # 0.1 10*3/uL (0.0-0.2); Basophils % 1.4 % (0.0-0.8); Eosinophils % 0.5 % (0.00-10.9); Hematocrit 26.5 VOL% (35.7-47.0); Hemoglobin 8.8 GM/DL (12.0-16.0); Immature Granulocytes % 0.7 %; Immature Granulocytes Absolute 0.03 #; Lymphocytes # 1.9 10*3/uL (1.4-4.0); Lymphocytes % 45.4 % (21.3-54.2); Mean Corpuscular HGB Conc 33.2 GM/DL (32-36); Mean Corpuscular Volume 86.9 FL (87-102); Monocytes # 0.9 10*3/uL (0.11-0.8); Monocytes % 21.1 % (1.7-12.7); NRBC # 0.05 10*3/uL; Neutrophils % 30.9 % (38.7-73.9); Platelet Count 196 T/CUMM (130-400); Red Blood Count 3.05 MC/CUMM (3.8-5.5); Red Cell Distribution Width 19.8 % (9.3-17.3); White Blood Count 4.2 T/CUMM (4-12)
[2022-08-15] MEDS: INSULIN LISPRO 100 UNIT/ML SUBCUT SCH ×4 (07:56→22:40)
[2022-08-15 08:01] LABS: Bilirubin,Total 0.9 MG/DL (0.20-1.00); Osmolality,Calculated 274.7 MOS/KG (273-304); Potassium 3.5 MMOL/L (3.5-5.1); Total Protein 6.5 G/DL (6.4-8.2)
[2022-08-15 08:12] LABS: Band Neutrophils 5 % (0-10); Eosinophils 3 % (0-10); Hypochromia 1+; Lymphocytes 42 % (20-55); Nucleated Red Blood Cells 1 /100 WBC (0-5); Polychromasia Slight; Target Cells Slight; Total Cells Counted 100
[2022-08-15 08:13] LABS: Microcytosis 1+; Platelet Estimate Adequate
[2022-08-15] MEDS: DOCUSATE SODIUM 100 MG CAPSULE PO SCH ×2 (09:34→22:39)
[2022-08-15] MEDS: HEPARIN 5,000 UNIT/1 ML VIAL SUBCUT SCH ×2 (09:35→23:07)
[2022-08-15] MEDS: PANTOPRAZOLE 40 MG TABLET PO SCH (09:35)
[2022-08-15] MEDS: FILGRASTIM-SNDZ 300 MCG/0.5 ML SYRINGE SUBCUT SCH (12:00)
[2022-08-15] MEDS: VANCOMYCIN INJ 1,750 MG in SODIUM CHLORIDE 0.9% 500 ML IV SCH (12:59)
[2022-08-15] MEDS ORDERED: FLUTICASONE 50 MCG NASAL SPRAY 16 GM BOTTLE BOTH NARES PRN (13:13)
[2022-08-15] MEDS ORDERED: MYLANTA/LIDO VISC/DIPH 300 ML BOTTLE SWISH/SPIT PRN (13:25)
[2022-08-15] MEDS: GABAPENTIN 400 MG CAPSULE PO SCH ×2 (15:50→22:40)
[2022-08-15] MEDS: BRIMONIDINE 0.15% OPH SOLN 1 DROP/DROPS BOTTLE LEFT EYE SCH ×2 (15:51→22:39)
[2022-08-15] MEDS: TIMOLOL 0.5% OPH SOLN 5 ML BOTTLE LEFT EYE SCH ×2 (15:51→22:39)
[2022-08-15] MEDS: ONDANSETRON 4 MG/2 ML VIAL IV PRN ×2 (18:08→23:07)
[2022-08-15] MEDS: BIMATOPROST 0.01% OPH SOLN 2.5 ML BOTTLE LEFT EYE SCH (22:39)
[2022-08-15] MEDS: OXYBUTYNIN 5 MG TABLET PO SCH (23:06)
[2022-08-15] MEDS: ZALEPLON 5 MG CAPSULE PO PRN (23:07)
[2022-08-16] MEDS: VANCOMYCIN INJ 1,750 MG in SODIUM CHLORIDE 0.9% 500 ML IV SCH ×2 (03:43→18:20)
[2022-08-16] MEDS: MEROPENEM 500 MG in SODIUM CHLORIDE 0.9% 100 ML IV SCH ×4 (04:26→21:44)
[2022-08-16 05:19] LABS: Basophils # 0.1 10*3/uL (0.0-0.2); Basophils % 1.3 % (0.0-0.8); Eosinophils % 0.4 % (0.00-10.9); Hematocrit 26.8 VOL% (35.7-47.0); Hemoglobin 8.8 GM/DL (12.0-16.0); Immature Granulocytes % 2.7 %; Immature Granulocytes Absolute 0.27 #; Lymphocytes # 2.4 10*3/uL (1.4-4.0); Lymphocytes % 24.1 % (21.3-54.2); Mean Corpuscular HGB Conc 32.8 GM/DL (32-36); Mean Corpuscular Volume 87.9 FL (87-102); Mean Platelet Volume 10.2 FL (9.6-12.0); Monocytes # 1.9 10*3/uL (0.11-0.8); Monocytes % 18.9 % (1.7-12.7); Neutrophils % 52.6 % (38.7-73.9); Platelet Count 197 T/CUMM (130-400); Red Blood Count 3.05 MC/CUMM (3.8-5.5); Red Cell Distribution Width 20.7 % (9.3-17.3); White Blood Count 9.9 T/CUMM (4-12)
[2022-08-16 05:33] LABS: Calcium 7.6 MG/DL (8.5-10.1); Osmolality,Calculated 271.7 MOS/KG (273-304)
[2022-08-16 06:05] LABS: Lymphocytes 23 % (20-55); Nucleated Red Blood Cells 3 /100 WBC (0-5); Total Cells Counted 100
[2022-08-16 06:06] LABS: Platelet Estimate Adequate; Polychromasia Slight; Target Cells Slight
[2022-08-16] MEDS ORDERED: POTASSIUM CHLORIDE 20 MEQ TABLET PO ONE (07:15)
[2022-08-16] MEDS ORDERED: MAGNESIUM SULF RIDER 2 GM/50 ML PREMIX IV ONE (07:17)
[2022-08-16] MEDS: INSULIN LISPRO 100 UNIT/ML SUBCUT SCH ×4 (08:10→21:45)
[2022-08-16] MEDS: HEPARIN 5,000 UNIT/1 ML VIAL SUBCUT SCH (10:35)
[2022-08-16] MEDS: amLODIPine 10 MG TABLET PO SCH (10:37)
[2022-08-16] MEDS: POTASSIUM CHLORIDE 20 MEQ TABLET PO SCH ×2 (10:37→14:55)
[2022-08-16] MEDS: CETIRIZINE 10 MG TABLET PO SCH (10:37)
[2022-08-16] MEDS: MULTIVITAMIN (CENTRUM) TABLET PO SCH (10:37)
[2022-08-16] MEDS: ANASTROZOLE 1 MG TABLET PO SCH (10:38)
[2022-08-16] MEDS: GABAPENTIN 400 MG CAPSULE PO SCH ×3 (10:38→21:45)
[2022-08-16] MEDS: OXYBUTYNIN 5 MG TABLET PO SCH ×2 (10:38→21:45)
[2022-08-16] MEDS: PANTOPRAZOLE 40 MG TABLET PO SCH (10:38)
[2022-08-16] MEDS: DOCUSATE SODIUM 100 MG CAPSULE PO SCH ×2 (10:38→21:45)
[2022-08-16] MEDS: ASPIRIN EC 81 MG TABLET PO SCH (10:38)
[2022-08-16] MEDS: BRIMONIDINE 0.15% OPH SOLN 1 DROP/DROPS BOTTLE LEFT EYE SCH ×3 (10:48→21:45)
[2022-08-16] MEDS: TIMOLOL 0.5% OPH SOLN 5 ML BOTTLE LEFT EYE SCH ×3 (10:48→21:45)
[2022-08-16] MEDS: ONDANSETRON 4 MG/2 ML VIAL IV PRN (10:56)
[2022-08-16] MEDS ORDERED: ALBUTEROL 1.25 MG/3 ML NEB RESP TX ONE (20:30)
[2022-08-16] MEDS: ENOXAPARIN 100 MG/ML SYRINGE SUBCUT SCH (21:45)
[2022-08-16] MEDS: BIMATOPROST 0.01% OPH SOLN 2.5 ML BOTTLE LEFT EYE SCH (21:46)
[2022-08-17] MEDS: MEROPENEM 500 MG in SODIUM CHLORIDE 0.9% 100 ML IV SCH ×4 (02:09→21:10)
[2022-08-17] MEDS: VANCOMYCIN INJ 1,750 MG in SODIUM CHLORIDE 0.9% 500 ML IV SCH ×2 (02:10→13:30)
[2022-08-17 05:31] LABS: Basophils # 0.1 10*3/uL (0.0-0.2); Basophils % 0.9 % (0.0-0.8); Eosinophils % 0.3 % (0.00-10.9); Hematocrit 25.7 VOL% (35.7-47.0); Hemoglobin 8.4 GM/DL (12.0-16.0); Immature Granulocytes % 4.2 %; Immature Granulocytes Absolute 0.59 #; Lymphocytes # 2.7 10*3/uL (1.4-4.0); Lymphocytes % 19.3 % (21.3-54.2); Mean Corpuscular HGB Conc 32.7 GM/DL (32-36); Mean Platelet Volume 11.5 FL (9.6-12.0); Monocytes # 2.3 10*3/uL (0.11-0.8); Monocytes % 16.6 % (1.7-12.7); NRBC # 0.21 10*3/uL; Neutrophils % 58.7 % (38.7-73.9); Platelet Count 245 T/CUMM (130-400); Red Blood Count 2.92 MC/CUMM (3.8-5.5); Red Cell Distribution Width 21.7 % (9.3-17.3); White Blood Count 13.9 T/CUMM (4-12)
[2022-08-17 05:39] LABS: Calcium 7.5 MG/DL (8.5-10.1); Osmolality,Calculated 277.4 MOS/KG (273-304); Potassium 3.6 MMOL/L (3.5-5.1)
[2022-08-17 06:43] LABS: Band Neutrophils 25 % (0-10); Eosinophils 1 % (0-10); Lymphocytes 20 % (20-55); Metamyelocytes 1 %; Nucleated Red Blood Cells 2 /100 WBC (0-5); Platelet Estimate Normal; Total Cells Counted 100
[2022-08-17 06:44] LABS: Anisocytosis 1+; Atypical Lymphocytes Few; Burr Cells Few; Macrocytosis 1+; Ovalocytes Few; Target Cells 1+
[2022-08-17] MEDS ORDERED: ALBUTEROL 1.25 MG/3 ML NEB RESP TX PRN (08:57)
[2022-08-17] MEDS ORDERED: ERGOCALCIFEROL 50,000 UNIT CAPSULE PO SCH (09:00)
[2022-08-17] MEDS: INSULIN LISPRO 100 UNIT/ML SUBCUT SCH ×4 (10:14→21:19)
[2022-08-17] MEDS: GABAPENTIN 400 MG CAPSULE PO SCH ×3 (10:16→21:13)
[2022-08-17] MEDS: OXYBUTYNIN 5 MG TABLET PO SCH ×2 (10:16→21:12)
[2022-08-17] MEDS: amLODIPine 10 MG TABLET PO SCH (10:16)
[2022-08-17] MEDS: MULTIVITAMIN (CENTRUM) TABLET PO SCH (10:16)
[2022-08-17] MEDS: PANTOPRAZOLE 40 MG TABLET PO SCH (10:16)
[2022-08-17] MEDS: TIMOLOL 0.5% OPH SOLN 5 ML BOTTLE LEFT EYE SCH ×3 (10:17→21:14)
[2022-08-17] MEDS: ASPIRIN EC 81 MG TABLET PO SCH (10:17)
[2022-08-17] MEDS: CETIRIZINE 10 MG TABLET PO SCH (10:17)
[2022-08-17] MEDS: ENOXAPARIN 100 MG/ML SYRINGE SUBCUT SCH ×2 (10:20→21:12)
[2022-08-17] MEDS: BRIMONIDINE 0.15% OPH SOLN 1 DROP/DROPS BOTTLE LEFT EYE SCH ×3 (10:26→21:14)
[2022-08-17] MEDS: FUROSEMIDE 40 MG/4 ML VIAL IV SCH (10:30)
[2022-08-17] MEDS: DOCUSATE SODIUM 100 MG CAPSULE PO SCH ×2 (10:31→21:13)
[2022-08-17] MEDS: ANASTROZOLE 1 MG TABLET PO SCH (10:34)
[2022-08-17] MEDS: ALBUTEROL 1.25 MG/3 ML NEB RESP TX SCH (14:07)
[2022-08-17] MEDS: BIMATOPROST 0.01% OPH SOLN 2.5 ML BOTTLE LEFT EYE SCH (21:14)
[2022-08-18] MEDS: ALBUTEROL 1.25 MG/3 ML NEB RESP TX SCH ×3 (00:03→17:53)
[2022-08-18] MEDS: VANCOMYCIN INJ 1,750 MG in SODIUM CHLORIDE 0.9% 500 ML IV SCH ×2 (01:58→13:33)
[2022-08-18] MEDS: ONDANSETRON 4 MG/2 ML VIAL IV PRN (02:36)
[2022-08-18 04:30] LABS: Basophils # 0.1 10*3/uL (0.0-0.2); Basophils % 0.7 % (0.0-0.8); Eosinophils % 0.3 % (0.00-10.9); Hematocrit 26.6 VOL% (35.7-47.0); Hemoglobin 8.7 GM/DL (12.0-16.0); Immature Granulocytes % 1.4 %; Immature Granulocytes Absolute 0.17 #; Lymphocytes # 2.1 10*3/uL (1.4-4.0); Lymphocytes % 17.5 % (21.3-54.2); Mean Corpuscular HGB Conc 32.7 GM/DL (32-36); Mean Corpuscular Volume 88.7 FL (87-102); Monocytes # 1.9 10*3/uL (0.11-0.8); Monocytes % 15.6 % (1.7-12.7); NRBC # 0.04 10*3/uL; Neutrophils % 64.5 % (38.7-73.9); Platelet Count 246 T/CUMM (130-400); Red Cell Distribution Width 22.3 % (9.3-17.3)
[2022-08-18 04:48] LABS: Calcium 6.9 MG/DL (8.5-10.1); Osmolality,Calculated 282.3 MOS/KG (273-304); Potassium 3.2 MMOL/L (3.5-5.1)
[2022-08-18 05:08] LABS: Band Neutrophils 1 % (0-10); Eosinophils 1 % (0-10); Lymphocytes 14 % (20-55); Platelet Estimate Adequate; Total Cells Counted 100
[2022-08-18 05:09] LABS: Burr Cells Slight; Hypochromia Slight; Microcytosis Slight; Ovalocytes Slight
[2022-08-18] MEDS: MEROPENEM 500 MG in SODIUM CHLORIDE 0.9% 100 ML IV SCH (06:03)
[2022-08-18] MEDS ORDERED: POTASSIUM CHLORIDE 20 MEQ TABLET PO ONE (07:38)
[2022-08-18] MEDS: INSULIN LISPRO 100 UNIT/ML SUBCUT SCH ×3 (07:56→16:19)
[2022-08-18] MEDS: TIMOLOL 0.5% OPH SOLN 5 ML BOTTLE LEFT EYE SCH ×2 (08:25→16:01)
[2022-08-18] MEDS: BRIMONIDINE 0.15% OPH SOLN 1 DROP/DROPS BOTTLE LEFT EYE SCH ×2 (08:26→16:01)
[2022-08-18] MEDS: GABAPENTIN 400 MG CAPSULE PO SCH ×2 (08:28→16:01)
[2022-08-18] MEDS: FUROSEMIDE 40 MG/4 ML VIAL IV SCH (08:28)
[2022-08-18] MEDS: MULTIVITAMIN (CENTRUM) TABLET PO SCH (08:28)
[2022-08-18] MEDS: ASPIRIN EC 81 MG TABLET PO SCH (08:28)
[2022-08-18] MEDS: OXYBUTYNIN 5 MG TABLET PO SCH (08:28)
[2022-08-18] MEDS: amLODIPine 10 MG TABLET PO SCH (08:29)
[2022-08-18] MEDS: DOCUSATE SODIUM 100 MG CAPSULE PO SCH (08:29)
[2022-08-18] MEDS: CETIRIZINE 10 MG TABLET PO SCH (08:29)
[2022-08-18] MEDS: ANASTROZOLE 1 MG TABLET PO SCH (08:29)
[2022-08-18] MEDS: PANTOPRAZOLE 40 MG TABLET PO SCH (08:29)
[2022-08-18] MEDS: ENOXAPARIN 100 MG/ML SYRINGE SUBCUT SCH (08:29)
[2022-08-18 16:37] VITALS: BP 111/67
[2022-08-18] MEDS ORDERED: APIXABAN 5 MG TABLET PO SCH (21:00)
== END 2022-08-18 17:37 | disposition home or self-care (01) | DRG 809 ==
LOC: N.ED 11:08 → N.EDINP 16:15 → SUATTDRO 16:15 → N.TELES 17:08
PROVIDERS: ADMIT Internal Medicine; ATTEND Emergency Medicine

== ENCOUNTER 2022-09-29 22:13 | Inpatient (IN) ==
[2022-09-29] MEDS ORDERED: IBUPROFEN 800 MG TABLET PO STA (22:52)
[2022-09-29] MEDS ORDERED: SODIUM CHLORIDE 0.9% 500 ML IV STA (22:52)
[2022-09-29 23:25] LABS: Alanine Aminotransferase 17 U/L (13-56); Albumin 1.5 G/DL (3.4-5.0); Alkaline Phosphatase 186 U/L (45-117); Amylase 18 U/L (25-115); Aspartate Amino Transferase 49 U/L (0-37); Blood Urea Nitrogen 29 MG/DL (7-18); Calcium 11.3 MG/DL (8.5-10.1); Carbon Dioxide 22 MMOL/L (21-32); Chloride 99 MMOL/L (98-107); Glucose 68 MG/DL (74-106); Osmolality,Calculated 267.5 MOS/KG (273-304); Potassium 2.6 MMOL/L (3.5-5.1); Sodium 132 MMOL/L (136-145); Total Protein 5.5 G/DL (6.4-8.2)
[2022-09-29 23:28] LABS: Lactic Acid 4.6 MMOL/L (0.4-2.0)
[2022-09-29] MEDS ORDERED: PIPERACILLIN/TAZOBACTAM 3,375 MG in SODIUM CHLORIDE 0.9% 100 ML IV STA (23:31)
[2022-09-29] MEDS ORDERED: POTASSIUM CHLORIDE RIDER 20 MEQ/100 ML PREMIX IV STA (23:31)
[2022-09-29] MEDS ORDERED: SODIUM CHLORIDE 0.9% 1,650 ML IV ONE (23:31)
[2022-09-29 23:48] LABS: Acetaminophen 3.2 UG/ML (10-30)
[2022-09-29] MEDS ORDERED: PIPERACILLIN/TAZOBACTAM 3,375 MG VIAL IV ONE (23:50)
[2022-09-29] MEDS ORDERED: SODIUM CHLORIDE 0.9% 100 ML IV ONE (23:51)
[2022-09-29 23:53] LABS: Salicylate < 2.8 MG/DL (2.8-20)
[2022-09-30] MEDS ORDERED: DEXTROSE 50% 25 GM/50 ML VIAL IV STA (00:05)
[2022-09-30] MEDS ORDERED: DEXTROSE 10% 250 ML BAG IV STA (00:08)
[2022-09-30 00:17] LABS: Basophils % 0.7 % (0.0-0.8); Hematocrit 19.6 VOL% (35.7-47.0); Hemoglobin 6.8 GM/DL (12.0-16.0); Immature Granulocytes % 1.2 %; Immature Granulocytes Absolute 0.05 #; Lymphocytes # 0.9 10*3/uL (1.4-4.0); Lymphocytes % 21.3 % (21.3-54.2); Mean Corpuscular HGB Conc 34.7 GM/DL (32-36); Mean Platelet Volume 11.5 FL (9.6-12.0); Monocytes # 0.7 10*3/uL (0.11-0.8); Monocytes % 15.2 % (1.7-12.7); Neutrophils % 61.6 % (38.7-73.9); Platelet Count 243 T/CUMM (130-400); Red Blood Count 2.28 MC/CUMM (3.8-5.5); Red Cell Distribution Width 22.6 % (9.3-17.3); White Blood Count 4.3 T/CUMM (4-12)
[2022-09-30 00:44] LABS: Lymphocytes 21 % (20-55); Platelet Estimate Adequate; Total Cells Counted 100
[2022-09-30 01:10] LABS: Bacteria,Urine Moderate /HPF (Few); Hyaline Casts,Urine 2 /LPF (0-3); Mucus,Urine Occasional /LPF (Occasional); RBC,Urine 5 /HPF (0-4); Squamous Epithelial Cell,Urine Occasional /HPF (0-10)
[2022-09-30 01:11] LABS: Bilirubin,Urine Negative (Negative); Blood, Urine Trace mg/dL (Negative); Glucose,Urine (UA) Negative (Negative); Ketones,Urine Negative (Negative); Nitrite,Urine Negative (Negative); Protein,Urine Negative (Negative); Urine Appearance SL CLOUDY (Clear); Urine Color Yellow (Yellow); Urine Specific Gravity 1.015 (1.001-1.035); Urine pH 5.5 (4.5-8.0)
[2022-09-30 01:12] LABS: Urine Urobilinogen 0.2 eU/dL (<2.0)
[2022-09-30] MEDS ORDERED: VANCOMYCIN INJ 1,000 MG in SODIUM CHLORIDE 0.9% 250 ML IV STA (01:23)
[2022-09-30] MEDS ORDERED: POTASSIUM CHLORIDE 20 MEQ TABLET PO ONE (01:53)
[2022-09-30] MEDS ORDERED: DEXTROSE 50% 25 GM/50 ML SYRINGE IV ONE (01:54)
[2022-09-30] MEDS: POTASSIUM CHLORIDE RIDER 10 MEQ/100 ML PREMIX IV SCH (02:16)
[2022-09-30] MEDS ORDERED: POTASSIUM CHLORIDE 20 MEQ TABLET PO STA (02:18)
[2022-09-30] MEDS ORDERED: ZOLEDRONIC ACID 4 MG/100 ML PREMIX IV ONE (02:30)
[2022-09-30 02:37] LABS: Barbiturates Screen,Urine Negative (Negative); Benzodiazepines Screen,Urine Negative (Negative); Cannabinoid Screen,Urine Negative (Negative); Opiate Screen,Urine Positive (Negative); Phencyclidine Screen,Urine Negative (Negative)
[2022-09-30] MEDS ORDERED: LACTULOSE 320 GM/480 ML BOTTLE RECTAL ONE (02:47)
[2022-09-30] MEDS ORDERED: ONDANSETRON 4 MG/2 ML VIAL IV PRN (02:47)
[2022-09-30] MEDS ORDERED: SODIUM CHLORIDE 0.9% 1,000 ML IV PRN ×2 (02:54→08:25)
[2022-09-30] MEDS ORDERED: POTASSIUM CHLORIDE INJ 20 MEQ in SODIUM CHLORIDE 0.9% 1,000 ML IV SCH (03:00)
[2022-09-30] MEDS: CALCITONIN 400 UNIT/2 ML VIAL SUBCUT SCH ×2 (04:22→17:06)
[2022-09-30] MEDS: MEROPENEM 500 MG in SODIUM CHLORIDE 0.9% 100 ML IV SCH ×3 (04:32→20:27)
[2022-09-30] MEDS: SODIUM CHLOR 0.9% KCL 20 MEQ 20 MEQ/1,000 ML BAG IV SCH ×3 (06:11→22:00)
[2022-09-30] MEDS ORDERED: SODIUM CHLORIDE 0.9% 1,000 ML IV STA (06:50)
[2022-09-30 07:14] LABS: Basophils % 0.7 % (0.0-0.8); Hematocrit 18.5 VOL% (35.7-47.0); Immature Granulocytes % 0.7 %; Immature Granulocytes Absolute 0.02 #; Lymphocytes # 0.6 10*3/uL (1.4-4.0); Lymphocytes % 20.8 % (21.3-54.2); Mean Corpuscular HGB Conc 34.6 GM/DL (32-36); Mean Corpuscular Volume 85.3 FL (87-102); Monocytes # 0.3 10*3/uL (0.11-0.8); Monocytes % 11.3 % (1.7-12.7); Neutrophils % 66.5 % (38.7-73.9); Platelet Count 197 T/CUMM (130-400); Red Blood Count 2.17 MC/CUMM (3.8-5.5); Red Cell Distribution Width 22.8 % (9.3-17.3); White Blood Count 2.8 T/CUMM (4-12)
[2022-09-30 07:14] LABS: Albumin 1.4 G/DL (3.4-5.0); Bilirubin,Total 1.7 MG/DL (0.20-1.00); Calcium 10.1 MG/DL (8.5-10.1); Osmolality,Calculated 279.8 MOS/KG (273-304); Potassium 2.7 MMOL/L (3.5-5.1); Total Protein 4.3 G/DL (6.4-8.2)
[2022-09-30 07:17] LABS: Hemoglobin 6.4 GM/DL (12.0-16.0)
[2022-09-30 07:37] LABS: Band Neutrophils 11 % (0-10); Eosinophils 1 % (0-10); Lymphocytes 15 % (20-55); Metamyelocytes 1 %; Total Cells Counted 100
[2022-09-30 07:38] LABS: Microcytosis 1+; Polychromasia Slight; Target Cells Slight
[2022-09-30 07:39] LABS: Acanthocytes Few; Ovalocytes Slight
[2022-09-30] MEDS ORDERED: POTASSIUM CHLORIDE RIDER 10 MEQ/100 ML PREMIX IV PRN (08:28)
[2022-09-30] MEDS: POTASSIUM CHLORIDE 20 MEQ TABLET PO SCH (13:41)
[2022-09-30] MEDS: APIXABAN 5 MG TABLET PO SCH ×2 (13:41→21:12)
[2022-09-30] MEDS: PANTOPRAZOLE 40 MG TABLET PO SCH (13:41)
[2022-09-30] MEDS ORDERED: BISACODYL 10 MG SUPP RECTAL ONE (14:14)
[2022-09-30] MEDS ORDERED: LACTULOSE 20 GM/30 ML UDCUP PO PRN (14:14)
[2022-09-30] MEDS ORDERED: LACTULOSE 20 GM/30 ML UDCUP PO ONE (14:14)
[2022-09-30] MEDS: VANCOMYCIN INJ 1,500 MG in SODIUM CHLORIDE 0.9% 500 ML IV SCH (15:01)
[2022-09-30] MEDS: MORPHINE 2 MG/1 ML SYRINGE IV PRN (17:06)
[2022-09-30] MEDS: FILGRASTIM-SNDZ 480 MCG/0.8 ML SYRINGE SUBCUT SCH (20:21)
[2022-09-30] MEDS: DOCUSATE SODIUM 100 MG CAPSULE PO SCH (21:12)
[2022-10-01] MEDS: SODIUM CHLOR 0.9% KCL 20 MEQ 20 MEQ/1,000 ML BAG IV SCH (02:48)
[2022-10-01 05:02] LABS: Basophils # 0.1 10*3/uL (0.0-0.2); Basophils % 0.9 % (0.0-0.8); Hematocrit 29.7 VOL% (35.7-47.0); Hemoglobin 10.3 GM/DL (12.0-16.0); Immature Granulocytes % 1.4 %; Immature Granulocytes Absolute 0.08 #; Lymphocytes # 0.6 10*3/uL (1.4-4.0); Lymphocytes % 10.3 % (21.3-54.2); Mean Corpuscular HGB Conc 34.7 GM/DL (32-36); Mean Corpuscular Volume 84.4 FL (87-102); Monocytes # 0.3 10*3/uL (0.11-0.8); Monocytes % 5.5 % (1.7-12.7); NRBC # 0.02 10*3/uL; Neutrophils % 81.9 % (38.7-73.9); Platelet Count 171 T/CUMM (130-400); Red Blood Count 3.52 MC/CUMM (3.8-5.5); Red Cell Distribution Width 19.3 % (9.3-17.3); White Blood Count 5.6 T/CUMM (4-12)
[2022-10-01] MEDS: CALCITONIN 400 UNIT/2 ML VIAL SUBCUT SCH (05:14)
[2022-10-01 05:19] LABS: Calcium 10.7 MG/DL (8.5-10.1); Osmolality,Calculated 284.3 MOS/KG (273-304); Potassium 3.2 MMOL/L (3.5-5.1)
[2022-10-01] MEDS: MEROPENEM 500 MG in SODIUM CHLORIDE 0.9% 100 ML IV SCH (05:21)
[2022-10-01 05:24] LABS: Band Neutrophils 8 % (0-10); Burr Cells Slight; Lymphocytes 8 % (20-55); Ovalocytes Slight; Platelet Estimate Adequate; Total Cells Counted 100
[2022-10-01] MEDS ORDERED: DEXTROSE 10% 250 ML BAG IV PRN (05:26)
[2022-10-01] MEDS ORDERED: SODIUM BICARBONATE 50 MEQ/50 ML SYRINGE IV ONE (08:19)
[2022-10-01] MEDS ORDERED: SODIUM PHOSPHATE ENEMA 133 ML BOTTLE RECTAL ONE (08:23)
[2022-10-01] MEDS ORDERED: SODIUM PHOSPHATE ENEMA 133 ML BOTTLE RECTAL PRN (08:23)
[2022-10-01] MEDS ORDERED: ENOXAPARIN 40 MG/0.4 ML SYRINGE SUBCUT SCH (09:00)
[2022-10-01] MEDS ORDERED: POLYETHYLENE GLYCOL POWDER 17 GM PACK PO SCH (09:00)
[2022-10-01] MEDS ORDERED: LACTULOSE 20 GM/30 ML UDCUP PO SCH (09:00)
[2022-10-01] MEDS ORDERED: CALCITONIN 400 UNIT/2 ML VIAL SUBCUT ONE (10:00)
[2022-10-01] MEDS ORDERED: LORazepam 2 MG/1 ML VIAL IV PRN (10:26)
[2022-10-01] MEDS ORDERED: DEXTROSE 5% NACL 0.45% 500 ML IV SCH (12:00)
[2022-10-01] MEDS: VANCOMYCIN INJ 1,500 MG in SODIUM CHLORIDE 0.9% 500 ML IV SCH (12:27)
[2022-10-01] MEDS: DOCUSATE SODIUM 100 MG CAPSULE PO SCH (12:27)
[2022-10-01] MEDS: FILGRASTIM-SNDZ 480 MCG/0.8 ML SYRINGE SUBCUT SCH (12:28)
[2022-10-01] MEDS: PANTOPRAZOLE 40 MG TABLET PO SCH (12:28)
[2022-10-01] MEDS: POTASSIUM CHLORIDE 20 MEQ TABLET PO SCH (12:28)
[2022-10-02] MEDS: MORPHINE 2 MG/1 ML SYRINGE IV PRN (12:01)
[2022-10-03] MEDS ORDERED: MORPHINE 2 MG/1 ML SYRINGE IV SCH (21:00)
[2022-10-04] MEDS: LORazepam 2 MG/1 ML VIAL IM PRN ×3 (00:40→07:32)
[2022-10-04] MEDS ORDERED: MORPHINE 2 MG/1 ML SYRINGE IM PRN (01:00)
[2022-10-04] MEDS ORDERED: MORPHINE 2 MG/1 ML SYRINGE IM SCH (09:00)
[2022-10-04 09:23] VITALS: BP 50/30
== END 2022-10-04 10:57 | disposition expired | DRG 871 ==
LOC: N.ED 22:13 → N.EDINP 09-30 02:31 → N.TELEN 09-30 09:56
PROVIDERS: ADMIT Internal Medicine; ATTEND Internal Medicine